=== PATIENT | female | born 1985 | race Caucasian/White ===

== ENCOUNTER 2016-10-22 07:16 | Inpatient (IN) | payer OTHER ==
[2016-10-22] MEDS ORDERED: Sodium Chloride 0.9% 1,000 ML IV ONE (07:44)
--- NOTE | 2016-10-22 08:16 | C.PDOC ---
History Of Present Illness 31-year-old female, presents to the emergency department with complaints of one- day duration of periumbilical abdominal pain, which is associated with nausea and several episodes of non-bloody/non-bilious vomiting. Patients LMP was 7/2. No other complaints at this time. Time Seen by Provider: 10/22/16 07:21 Chief Complaint (Nursing): Abdominal Pain History Per: Patient History/Exam Limitations: no limitations Onset/Duration Of Symptoms: Days Current Symptoms Are (Timing): Still Present Severity: Moderate Past Medical History Reviewed: Historical Data, Nursing Documentation, Vital Signs Vital Signs: Last Vital Signs Temp 98.9 F 10/22/16 07:26 Pulse 68 10/22/16 07:26 Resp 16 10/22/16 07:26 BP 126/70 10/22/16 07:26 Pulse Ox 97 10/22/16 07:26 Family History: States: No Known Family Hx - Social History Hx Tobacco Use: No Hx Alcohol Use: Yes Hx Substance Use: No Review Of Systems Except As Marked, All Systems Reviewed And Found Negative. Constitutional: Negative for: Fever Cardiovascular: Negative for: Chest Pain Respiratory: Negative for: Shortness of Breath Gastrointestinal: Positive for: Nausea, Vomiting, Abdominal Pain Genitourinary: Negative for: Vaginal Discharge, Vaginal Bleeding Physical Exam - Physical Exam Appears: Non-toxic, No Acute Distress Skin: Warm, Dry, No Rash Eye(s): bilateral: Normal Inspection Neck: Normal ROM Cardiovascular: Rhythm Regular, No Murmur Respiratory: Normal Breath Sounds, No Accessory Muscle Use Gastrointestinal/Abdominal: Soft, Tenderness (periumbilical) Extremity: Normal ROM Neurological/Psych: Oriented x3 ED Course And Treatment O2 Sat by Pulse Oximetry: 97 - Scribe Statement The provider has reviewed the documentation as recorded by the Scribe (Kaley Toussaint) All medical record entries made by the Scribe were at my direction and personally dictated by me. I have reviewed the chart and agree that the record accurately reflects my personal performance of the history, physical exam, medical decision making, and the department course for this patient. I have also personally directed, reviewed, and agree with the discharge instructions and disposition.
[2016-10-22] MEDS ORDERED: Sodium Chloride 0.9% 1,000 ML ONE (08:18)
--- NOTE | 2016-10-22 08:19 | C.PDOC ---
History Of Present Illness 31-year-old female, presents to the emergency department with complaints of one- day duration of periumbilical abdominal pain, which is associated with nausea and several episodes of non-bloody/non-bilious vomiting. Patients LMP was 7/2. No other complaints at this time. Time Seen by Provider: 10/22/16 07:21 Chief Complaint (Nursing): Abdominal Pain History Per: Patient History/Exam Limitations: no limitations Onset/Duration Of Symptoms: Days Current Symptoms Are (Timing): Still Present Severity: Moderate Location Of Pain/Discomfort: Periumbilical Past Medical History Reviewed: Historical Data, Nursing Documentation, Vital Signs Vital Signs: Last Vital Signs Temp 99.4 F 10/22/16 13:32 Pulse 79 10/22/16 16:00 Resp 21 10/22/16 16:00 BP 104/55 L 10/22/16 16:00 Pulse Ox 97 10/22/16 18:10 Family History: States: No Known Family Hx - Social History Hx Tobacco Use: No Hx Alcohol Use: Yes Hx Substance Use: No Review Of Systems Except As Marked, All Systems Reviewed And Found Negative. Constitutional: Negative for: Fever Cardiovascular: Negative for: Chest Pain, Palpitations Respiratory: Negative for: Shortness of Breath Gastrointestinal: Positive for: Nausea, Vomiting, Abdominal Pain. Negative for : Diarrhea Physical Exam - Physical Exam Appears: Non-toxic, No Acute Distress Skin: Warm, Dry, No Rash Eye(s): bilateral: Normal Inspection Nose: Normal Neck: Normal ROM Cardiovascular: Rhythm Regular, No Murmur Respiratory: Normal Breath Sounds, No Accessory Muscle Use Gastrointestinal/Abdominal: Soft, Tenderness (periumbilical) Extremity: Normal ROM Neurological/Psych: Oriented x3, Normal Speech ED Course And Treatment - Laboratory Results Result Diagrams: 10/22/16 08:28 10/22/16 08:28 Lab Interpretation: Abnormal Urine POC: Negative O2 Sat by Pulse Oximetry: 97 - CT Scan/US No standard instances Other Rad Studies (CT/US): Read By Radiologist, Radiology Report Reviewed CT/US Interpretation: FINDINGS: LOWER THORAX: Limited bilateral basilar dependent atelectasis identified. LIVER: Unremarkable. No gross lesion or ductal dilatation. GALLBLADDER AND BILE DUCTS: Unremarkable. PANCREAS: Unremarkable. No gross lesion or ductal dilatation. SPLEEN: Unremarkable. ADRENALS: Unremarkable. No mass. KIDNEYS AND URETERS: Unremarkable. No hydronephrosis. No solid mass. VASCULATURE: Unremarkable. No aortic aneurysm. BOWEL: A thickened tubular structure appears to originate from the base of the cecum medially may extend more medially into the mid peritoneal space of the lower abdomen and upper pelvis/right lower quadrant. Moderate local reactive changes appreciated the finding is suspicious for appendicitis. The lack of oral and intravenous contrast agents diminishes the did not diagnostic power of this examination. No bowel obstruction or free intrarenal gas is encountered. APPENDIX: As per above in bowel section. PERITONEUM: Likely periappendiceal reaction. LYMPH NODES: Unremarkable. No enlarged lymph nodes. BLADDER: Unremarkable. REPRODUCTIVE: Unremarkable. BONES: No acute fracture. OTHER FINDINGS: None. IMPRESSION: Examination is suspicious for appendicitis. No free air or ascites. Consider surgical consultation. Sign The lack of contrast agents limits interpretation. Consider repeat CT of the abdomen pelvis following oral and intravenous contrast administration. Progress Note: treated with IVF NSS, toradol and zosyn IV. Case discussed and patient evaluated by surgical nurse practitioner who request admission fot OR Reassessment Condition: Improved - Physician Consult Information Physician Contacted: Deshaun Malloy Outcome Of Conversation: admit Disposition Discussed With Dr.: Deshaun Malloy Doctor Will See Patient In The: Hospital - Disposition Disposition: HOSPITALIZED Disposition Time: 13:00 Condition: STABLE - POA Present On Arrival: None - Clinical Impression Clinical Impression: Acute appendicitis - Scribe Statement The provider has reviewed the documentation as recorded by the Scribe (Kaley Toussaint) All medical record entries made by the Scribe were at my direction and personally dictated by me. I have reviewed the chart and agree that the record accurately reflects my personal performance of the history, physical exam, medical decision making, and the department course for this patient. I have also personally directed, reviewed, and agree with the discharge instructions and disposition. Decision To Admit - Pt Status Changed To: Hospital Disposition Of: Inpatient - Admit Certification Admit to Inpatient:: After my assessment, the patient will require hospitalization for at least two midnights. This is because of the severity of symptoms shown, intensity of services needed, and/or the medical risk in this patient being treated as an outpatient. - InPatient: Physician Admission Certification:: Acute Appendicitis - . Bed Request Type: Regular Admitting Physician: Deshaun Malloy Patient Diagnosis: Acute appendicitis
[2016-10-22 08:36] LABS: BASO # 0.2 K/uL (0.0-0.2); BASO % 0.9 % (0.0-2.0); HEMOGLOBIN 12.3 g/dL (11.0-16.0); LYMPH # 1.2 K/uL (1.0-4.3); LYMPH % 5.7 % (20.0-40.0); MEAN CELL VOLUME 87.8 fL (81.0-99.0); MEAN PLATELET VOLUME 8.2 fL (7.2-11.7); MONO # 0.8 K/uL (0.0-0.8); MONO % 3.6 % (0.0-10.0); NEUT # 19.5 K/uL (1.8-7.0); NEUT % 89.8 % (50.0-75.0); NRBC % 0.1 % (0.0-2.0); PLATELET COUNT 304 K/uL (130-400); RBC 4.22 Mil/uL (3.80-5.20); RED CELL DISTRIBUTION WIDTH 12.6 % (11.5-14.5); WHITE BLOOD COUNT 21.8 K/uL (4.8-10.8)
[2016-10-22 08:43] LABS: HCG,QUALITATIVE URINE NEGATIVE (NEGATIVE)
[2016-10-22 08:44] LABS: ALBUMIN 4.2 g/dL (3.5-5.0)
[2016-10-22 08:47] LABS: ALB/GLOB RATIO 1.2 (1.0-2.1); ALT/SGPT 36 U/L (9-52); AST/SGOT 19 U/L (14-36); BLOOD UREA NITROGEN 12 mg/dL (7-17); GFR AFRICAN-AMERICAN > 60; GFR NON-AFRICAN AMERICAN > 60
[2016-10-22 08:48] LABS: CALCIUM 8.7 mg/dl (8.6-10.4); LIPASE 42 U/L (23-300)
[2016-10-22 08:56] LABS: SQUAMOUS EPITHIAL 10 /hpf (0-5); URINE BILIRUBIN NEGATIVE (NEGATIVE); URINE BLOOD NEGATIVE (NEGATIVE); URINE CLARITY Hazy (Clear); URINE COLOR Yellow (YELLOW); URINE GLUCOSE (UA) NORMAL (Normal); URINE LEUKOCYTE ESTERASE NEG Leu/uL (Negative); URINE NITRATE NEGATIVE (NEGATIVE); URINE PROTEIN NEGATIVE (NEGATIVE); URINE UROBILINOGEN NORMAL mg/dL (0.2-1.0)
[2016-10-22 09:13] LABS: LYMPHOCYTE 4 % (20-40); MONOCYTE 4 % (0-10); NEUTROPHIL 92 % (50-75); PLATELET ESTIMATE NORMAL (NORMAL); TOTAL CELLS COUNTED 100
--- NOTE | 2016-10-22 09:45 | CT ---
PROCEDURE: CT Abdomen and Pelvis without intravenous contrast HISTORY: Pain COMPARISON: None. TECHNIQUE: A helical CT of the abdomen pelvis was performed without oral or intravenous contrast. Imaging was performed from the domes of the diaphragm to the symphysis pubis. Contrast Dose: Omnipaque 350-100 cc Radiation dose: Total exam DLP = 314 mGy-cm. This CT exam was performed using one or more of the following dose reduction techniques: Automated exposure control, adjustment of the mA and/or kV according to patient size, and/or use of iterative reconstruction technique. FINDINGS: LOWER THORAX: Limited bilateral basilar dependent atelectasis identified. LIVER: Unremarkable. No gross lesion or ductal dilatation. GALLBLADDER AND BILE DUCTS: Unremarkable. PANCREAS: Unremarkable. No gross lesion or ductal dilatation. SPLEEN: Unremarkable. ADRENALS: Unremarkable. No mass. KIDNEYS AND URETERS: Unremarkable. No hydronephrosis. No solid mass. VASCULATURE: Unremarkable. No aortic aneurysm. BOWEL: A thickened tubular structure appears to originate from the base of the cecum medially may extend more medially into the mid peritoneal space of the lower abdomen and upper pelvis/right lower quadrant. Moderate local reactive changes appreciated the finding is suspicious for appendicitis. The lack of oral and intravenous contrast agents diminishes the did not diagnostic power of this examination. No bowel obstruction or free intrarenal gas is encountered. APPENDIX: As per above in bowel section PERITONEUM: Likely periappendiceal reaction. LYMPH NODES: Unremarkable. No enlarged lymph nodes. BLADDER: Unremarkable. REPRODUCTIVE: Unremarkable. BONES: No acute fracture. OTHER FINDINGS: None. IMPRESSION: Examination is suspicious for appendicitis. No free air or ascites. Consider surgical consultation. Sign The lack of contrast agents limits interpretation. Consider repeat CT of the abdomen pelvis following oral and intravenous contrast administration.
[2016-10-22] MEDS ORDERED: Morphine 4 MG/ML VIAL IVP PRN ×2 (10:49→13:34)
[2016-10-22] MEDS ORDERED: Piperacillin/Tazobact 3.375 gm 100 ML IV STA (10:50)
--- NOTE | 2016-10-22 11:05 | CP.PCM.HP ---
History of Present Illness - History of Present Illness History of Present Illness: H&P for Dr. Malloy Patient is a 31F with PMH of gestational diabetes and no PSH who presented to the ED today with history of periumbilical pain radiating to the RLQ, nausea, and nb/nb emesis since this AM. Patient took alkaseltzer this AM but it did not alleviate her symptoms. Patient reports feeling warm but did not measure her temperatur. Patient denies any chest pain, SOB, headaches, numbness, tingling, diarrhea, constipation, hematochezia, melena, dysuria, hematuria, or any other symptoms. Patient has never had a previous incident Afebrile, VSS WBC: 21.8 CT: dilated, inflamed tubular appendix with surrounding fat stranding PMH: Gestational Diabetes PSH: none ALL: vaginal anti-fungal cream--reaction: hives Social: denies tobacco, occasional ETOH, denies illicit drugs Present on Admission - Present on Admission Any Indicators Present on Admission: No Review of Systems - Review of Systems All systems: reviewed and no additional remarkable complaints except (as per HPI ) - Constitutional Constitutional: Fever. absent: Headache, Lethargy, Weakness - Cardiovascular Cardiovascular: absent: Chest Pain, Dyspnea, Dyspnea on Exertion - Respiratory Respiratory: absent: Cough, Dyspnea, Dyspnea on Exertion - Gastrointestinal Gastrointestinal: Abdominal Pain, Nausea, Vomiting. absent: Constipation, Diarrhea, Hematemesis, Hematochezia, Loose Stools - Genitourinary Genitourinary: absent: Difficulty Urinating, Dysuria, Hematuria - Reproductive: Female Additional comments: LMP: 10/05 - Menstruation Additional comments: LMP: 10/05 - Musculoskeletal Musculoskeletal: absent: Back Pain, Numbness, Tingling - Neurological Neurological: absent: Numbness, Tingling, Weakness Past Patient History - Past Social History Smoking Status: Never Smoked Alcohol: Occasional Drugs: Denies - ENDOCRINE/METABOLIC Other/Comment: Gestational diabetes - PSYCHIATRIC Hx Substance Use: No - SURGICAL HISTORY Hx Surgeries: No - ANESTHESIA Hx Anesthesia: No Meds Allergies/Adverse Reactions: Allergies Allergy/AdvReac Type Severity Reaction Status Date / Time No Known Allergies Allergy Verified 10/22/16 07:28 Physical Exam - Constitutional Appears: Well, Non-toxic, No Acute Distress - Head Exam Head Exam: ATRAUMATIC, NORMOCEPHALIC - Eye Exam Eye Exam: Normal appearance. absent: Conjunctival injection, Scleral icterus - ENT Exam ENT Exam: Mucous Membranes Moist, Normal Oropharynx - Neck Exam Neck exam: Positive for: Normal Inspection - Respiratory Exam Respiratory Exam: NORMAL BREATHING PATTERN. absent: Accessory Muscle Use, Respiratory Distress - Cardiovascular Exam Cardiovascular Exam: RRR - GI/Abdominal Exam GI & Abdominal Exam: Soft, Tenderness (periumbilical and RLQ and LLQ pain). absent: Distended, Guarding, Rebound - Extremities Exam Extremities exam: Positive for: pedal pulses present. Negative for: calf tenderness, pedal edema - Back Exam Back exam: NORMAL INSPECTION. absent: CVA tenderness (L), CVA tenderness (R) - Neurological Exam Neurological exam: Alert, Normal Gait, Oriented x3 - Psychiatric Exam Psychiatric exam: Normal Affect, Normal Mood - Skin Skin Exam: Dry, Intact, Normal Color, Warm Results - Vital Signs Recent Vital Signs: Last Vital Signs Temp 98.7 F 10/22/16 10:37 Pulse 71 10/22/16 10:37 Resp 15 10/22/16 10:37 BP 113/72 10/22/16 10:37 Pulse Ox 98 10/22/16 10:37 - Labs Result Diagrams: 10/22/16 08:28 10/22/16 08:28 Labs: Laboratory Results - last 24 hr 10/22/16 10/22/16 10/22/16 08:28 08:28 08:29 WBC 21.8 H RBC 4.22 Hgb 12.3 Hct 37.1 MCV 87.8 MCH 29.0 MCHC 33.0 RDW 12.6 Plt Count 304 MPV 8.2 Neut % (Auto) 89.8 H Lymph % (Auto) 5.7 L [place] % (Auto) 3.6 Eos % (Auto) 0.0 Baso % (Auto) 0.9 Neut # 19.5 H Lymph # 1.2 [place] # 0.8 Eos # 0.0 Baso # 0.2 Neutrophils % (Manual) 92 H Lymphocytes % (Manual) 4 L Monocytes % (Manual) 4 Platelet Estimate Normal RBC Morphology Normal Sodium 136 Potassium 3.7 Chloride 99 Carbon Dioxide 24 Anion Gap 17 BUN 12 Creatinine 0.4 L Est GFR ( Amer) > 60 Est GFR (Non-Af Amer) > 60 Random Glucose 140 H Calcium 8.7 Total Bilirubin 1.3 AST 19 ALT 36 Alkaline Phosphatase 83 Total Protein 7.5 Albumin 4.2 Globulin 3.4 Albumin/Globulin Ratio 1.2 Lipase 42 Urine Color Yellow Urine Clarity Hazy Urine pH 5.0 Ur Specific [place] 1.027 Urine Protein Negative Urine Glucose (UA) Normal Urine Ketones Negative Urine Blood Negative Urine Nitrate Negative Urine Bilirubin Negative Urine Urobilinogen Normal Ur Leukocyte Esterase Neg Urine WBC (Auto) 1 Urine RBC (Auto) 2 Ur Squamous Epith Cells 10 H Urine HCG, Qual Negative - Imaging and Cardiology CT scan - abdomen Status: Image reviewed by me, Report reviewed by me CT scan - pelvis Status: Image reviewed by me, Report reviewed by me Assessment & Plan - Assessment and Plan (Free Text) Assessment: 31F with Appendicitis and leukocytosis Afebrile, VSS Wbc: 21.8 CT: dilated, inflamed appendix Plan: OR today for laparoscopic appendectomy, possible open NPO IV Zosyn analgesia, anti-emetics, SCD's and pepcid Discussed with Dr. Gama Harris, PGY2
[2016-10-22] MEDS ORDERED: Piperacillin/Tazobact 3.375 gm 100 ML IVPB ONE (11:07)
[2016-10-22 11:14] LABS: PROTHROMBIN TIME 11.2 SECONDS (9.7-12.2)
[2016-10-22] MEDS: Sodium Chloride 0.9% 1,000 ML IV SCH ×2 (11:18→18:53)
[2016-10-22] MEDS: Piperacillin/Tazobact 3.375 GM in Sodium Chloride 100 ML IVPB SCH ×3 (11:18→22:17)
[2016-10-22] MEDS ORDERED: Bupivacaine-Epi 0.5%-1:200,000 PF Inj ONE (11:21)
[2016-10-22] MEDS ORDERED: Propofol 10 mg/ml Inj (20 ML) ONE (11:26)
[2016-10-22] MEDS ORDERED: Midazolam 2 MG/2 ML VIAL ONE (11:26)
[2016-10-22] MEDS ORDERED: Morphine 4 MG/ML VIAL ONE (11:27)
[2016-10-22] MEDS ORDERED: Lactated Ringer's 1,000 ML IV ONE ×3 (12:07→15:30)
[2016-10-22] MEDS ORDERED: Neostigmine Methylsulfate 3mg/3ml Syringe IV ONE (13:14)
[2016-10-22] MEDS ORDERED: HYDROmorphone 0.5 mg/0.5 ml ISec IVP PRN (13:33)
--- NOTE | 2016-10-22 13:36 | PCM.SURG1 ---
Surgeon's Initial Post Op Note - Surgeon's Notes Surgeon: Deshaun Malloy MD Ticket Sorter: Claritza Harris PGY-2; Brianna Alatorre PGY-1; Yani Price OMS-III Type of Anesthesia: General Endo Pre-Operative Diagnosis: Acute appendicitis Operative Findings: See op report Post-Operative Diagnosis: Acute appendicitis Operation Performed: Laparoscopic appendectomy Specimen/Specimens Removed: Appendix and appendix base Estimated Blood Loss: EBL {In ML}: 30 Blood Products Given: N/A Drains Used: No Drains Post-Op Condition: Good Date of Surgery/Procedure: 10/22/16 Time of Surgery/Procedure: 13:35
[2016-10-22 19:45] VITALS: RESP 20
[2016-10-22] MEDS: Oxycodone/Acetaminophen 5/325 mg Tab PO PRN (19:56)
[2016-10-23] MEDS: Oxycodone/Acetaminophen 5/325 mg Tab PO PRN (01:46)
--- NOTE | 2016-10-23 02:03 | OP ---
DATE: 10/22/2016 PREOPERATIVE DIAGNOSIS: Acute appendicitis. POSTOPERATIVE DIAGNOSIS: Acute gangrenous appendicitis. PROCEDURE PERFORMED: Laparoscopic appendectomy. SURGEON: Deshaun Malloy MD DISPATCHER SERVICE OR WORK: . FINDINGS: Appendix was markedly inflamed. It was gangrenous, down to about 1 cm of the base. Mesentery was very edematous and containing some fibrinous exudate. No gross perforation was noted. DESCRIPTION OF PROCEDURE: The patient was prepared and draped in sterile fashion. CO2 was insufflated through a Veress needle and inserted in the umbilical area. A 12-mm trocar was inserted and then through that, a laparoscope was inserted under direct vision, 5 mm suprapubic port and a 5 mm left lower quadrant ports were inserted. The patient was placed in a Trendelenburg position, turned slightly towards the left side. The appendix was identified. The base of the appendix was also identified. A window was created at the base of the appendix. It was transected with the aid of the and OLGA with loose anel. The mesentery was treated with the wide anel and the remaining unstapled was left and cut. The appendix was placed and an EndoCatch was extracted through the umbilical port. The area was irrigated with saline solution and irrigated through suction. No bleeding was noted. CO2 allowed to escape from the peritoneal cavity. Trocar was removed. The wound was closed in a routine fashion. Estimated blood loss was about 10 mL. No complications. Deshaun Malloy MD
[2016-10-23] MEDS: Sodium Chloride 0.9% 1,000 ML IV SCH ×2 (05:33→06:16)
[2016-10-23] MEDS: Piperacillin/Tazobact 3.375 GM in Sodium Chloride 100 ML IVPB SCH ×2 (05:34→12:59)
[2016-10-23 07:25] LABS: BASO % 0.1 % (0.0-2.0); LYMPH # 0.7 K/uL (1.0-4.3); LYMPH % 4.1 % (20.0-40.0); MEAN CELL VOLUME 87.7 fL (81.0-99.0); MEAN CORPUSCULAR HEMOGLOBIN 30.3 pg (27.0-31.0); MEAN CORPUSCULAR HGB CONC 34.6 g/dL (33.0-37.0); MEAN PLATELET VOLUME 7.9 fL (7.2-11.7); MONO # 0.6 K/uL (0.0-0.8); MONO % 3.7 % (0.0-10.0); NEUT # 15.9 K/uL (1.8-7.0); NEUT % 92.1 % (50.0-75.0); PLATELET COUNT 242 K/uL (130-400); RBC 3.33 Mil/uL (3.80-5.20); RED CELL DISTRIBUTION WIDTH 12.9 % (11.5-14.5); WHITE BLOOD COUNT 17.3 K/uL (4.8-10.8)
[2016-10-23 07:38] LABS: GFR AFRICAN-AMERICAN > 60; GFR NON-AFRICAN AMERICAN > 60
[2016-10-23 07:39] LABS: BLOOD UREA NITROGEN 5 mg/dL (7-17); CALCIUM 7.7 mg/dl (8.6-10.4)
[2016-10-23 07:42] LABS: HEMOGLOBIN 10.1 g/dL (11.0-16.0)
[2016-10-23] MEDS ORDERED: Oxycodone/Acetaminophen 5/325 mg Tab PO PRN (07:52)
--- NOTE | 2016-10-23 09:13 | CP.PCM.PN ---
Subjective - Date & Time of Evaluation Date of Evaluation: 10/23/16 Time of Evaluation: 08:00 - Subjective Subjective: Patient seen and examined this morning. Complained of mild abdominal pain along surgical incision sites. Tolerating PO diet. States she feels much better compared to yesterday. Reports passing flatus. Denies headache/dizziness, chest pain/SOB, dysuria. Objective - Vital Signs/Intake and Output Vital Signs (last 24 hours): Temp Pulse Resp BP Pulse Ox 99.1 F 93 H 20 97/59 L 94 L 10/23/16 08:16 10/23/16 08:16 10/23/16 08:16 10/23/16 08:16 10/23/16 08:16 Intake and Output: 10/23/16 10/23/16 06:59 18:59 Intake Total 1440 Balance 1440 - Medications Medications: Current Medications Enoxaparin Sodium (Lovenox) 40 mg SC DAILY [facility] Famotidine (Pepcid) 20 mg IVP Q12 [facility] Last Admin: 10/22/16 22:23 Dose: 20 mg Piperacillin Sod/Tazobactam (Sod 3.375 gm/ Sodium Chloride) 100 mls @ 200 mls/ hr IVPB Q6H MANUEL Last Admin: 10/23/16 05:34 Dose: 200 mls/hr Ondansetron HCl (Zofran Inj) 4 mg IVP Q6 PRN PRN Reason: Nausea/Vomiting Oxycodone/Acetaminophen (Percocet 5/325 Mg Tab) 1 tab PO Q4H PRN PRN Reason: Pain, moderate (4-7) Stop: 10/25/16 07:53 Last Admin: 10/23/16 08:29 Dose: 1 tab Pneumococcal Polyvalent Vaccine (Pneumovax 23 Vaccine) 0.5 ml IM .ONCE ONE Stop: 10/23/16 10:01 - Labs Labs: 10/23/16 07:03 10/23/16 07:03 PT 11.2 SECONDS (9.7-12.2) 10/22/16 11:02 INR 1.0 10/22/16 11:02 APTT 29 SECONDS (21-34) 10/22/16 11:02 - Constitutional Appears: No Acute Distress - Head Exam Head Exam: NORMOCEPHALIC - Eye Exam Eye Exam: Normal appearance - ENT Exam ENT Exam: Mucous Membranes Moist - Respiratory Exam Respiratory Exam: NORMAL BREATHING PATTERN - Cardiovascular Exam Cardiovascular Exam: +S1, +S2 - GI/Abdominal Exam GI & Abdominal Exam: Soft, Tenderness - Neurological Exam Neurological Exam: Alert, Awake, Oriented x3 - Psychiatric Exam Psychiatric exam: Normal Mood - Skin Skin Exam: Dry, Intact, Warm Assessment and Plan - Assessment and Plan (Free Text) Assessment: 31F w/ acute appaendicitis s/p laparoscopic appendectomy POD #1 -Patient clear for discharge from surgical standpoint -Replete potassium -PO Abx upon discharge -Follow up with Dr. Malloy in 7-10 days -further recs per Dr. Gama Benitez PGY-2
[2016-10-23 09:18] LABS: ANISOCYTOSIS SLIGHT; BANDS 10 % (0-2); HYPOCHROMIC SLIGHT; LYMPHOCYTE 2 % (20-40); MONOCYTE 4 % (0-10); NEUTROPHIL 84 % (50-75); PLATELET ESTIMATE NORMAL (NORMAL); POIKILOCYTOSIS SLIGHT; TOTAL CELLS COUNTED 100
[2016-10-23] MEDS ORDERED: Potassium Chloride 20 mEq ER Tab PO SCH (10:00)
[2016-10-23] MEDS ORDERED: Enoxaparin 40 mg Syringe SC SCH (10:00)
[2016-10-23] MEDS ORDERED: Pneumococcal 23-Valent Vaccine IM ONE (10:00)
--- NOTE | 2016-10-23 10:06 | CP.PCM.DIS ---
Provider - Provider Date of Admission: 10/22/16 11:10 Attending physician: Deshaun Malloy MD Time Spent in preparation of Discharge (in minutes): 35 Hospital Course - Lab Results Lab Results: Most Recent Lab Values WBC 17.3 K/uL (4.8-10.8) H 10/23/16 07:03 RBC 3.33 Mil/uL (3.80-5.20) L 10/23/16 07:03 Hgb 10.1 g/dL (11.0-16.0) L D 10/23/16 07:03 Hct 29.2 % (34.0-47.0) L 10/23/16 07:03 MCV 87.7 fL (81.0-99.0) 10/23/16 07:03 MCH 30.3 pg (27.0-31.0) 10/23/16 07:03 MCHC 34.6 g/dL (33.0-37.0) 10/23/16 07:03 RDW 12.9 % (11.5-14.5) 10/23/16 07:03 Plt Count 242 K/uL (130-400) 10/23/16 07:03 MPV 7.9 fL (7.2-11.7) 10/23/16 07:03 Neut % (Auto) 92.1 % (50.0-75.0) H 10/23/16 07:03 Lymph % (Auto) 4.1 % (20.0-40.0) L 10/23/16 07:03 [place] % (Auto) 3.7 % (0.0-10.0) 10/23/16 07:03 Eos % (Auto) 0.0 % (0.0-4.0) 10/23/16 07:03 Baso % (Auto) 0.1 % (0.0-2.0) 10/23/16 07:03 Neut # 15.9 K/uL (1.8-7.0) H 10/23/16 07:03 Lymph # 0.7 K/uL (1.0-4.3) L 10/23/16 07:03 [place] # 0.6 K/uL (0.0-0.8) 10/23/16 07:03 Eos # 0.0 K/uL (0.0-0.7) 10/23/16 07:03 Baso # 0.0 K/uL (0.0-0.2) 10/23/16 07:03 Neutrophils % (Manual) 84 % (50-75) H 10/23/16 07:03 Band Neutrophils % 10 % (0-2) H 10/23/16 07:03 Lymphocytes % (Manual) 2 % (20-40) L 10/23/16 07:03 Monocytes % (Manual) 4 % (0-10) 10/23/16 07:03 Platelet Estimate Normal (NORMAL) 10/23/16 07:03 RBC Morphology Normal 10/22/16 08:28 Hypochromasia (manual) Slight 10/23/16 07:03 Poikilocytosis (manual Slight 10/23/16 07:03 Anisocytosis (manual) Slight 10/23/16 07:03 PT 11.2 SECONDS (9.7-12.2) 10/22/16 11:02 INR 1.0 10/22/16 11:02 APTT 29 SECONDS (21-34) 10/22/16 11:02 Sodium 139 mmol/L (132-148) 10/23/16 07:03 Potassium 3.0 mmol/L (3.6-5.2) L 10/23/16 07:03 Chloride 103 mmol/L (98-107) 10/23/16 07:03 Carbon Dioxide 24 mmol/L (22-30) 10/23/16 07:03 Anion Gap 15 (10-20) 10/23/16 07:03 BUN 5 mg/dL (7-17) L 10/23/16 07:03 Creatinine 0.5 MG/DL (0.7-1.2) L 10/23/16 07:03 Est GFR ( Amer) > 60 10/23/16 07:03 Est GFR (Non-Af Amer) > 60 10/23/16 07:03 Random Glucose 150 mg/dL (65-105) H 10/23/16 07:03 Calcium 7.7 mg/dl (8.6-10.4) L 10/23/16 07:03 Total Bilirubin 1.3 mg/dL (0.2-1.3) 10/22/16 08:28 AST 19 U/L (14-36) 10/22/16 08:28 ALT 36 U/L (9-52) 10/22/16 08:28 Alkaline Phosphatase 83 U/L (38-126) 10/22/16 08:28 Total Protein 7.5 g/dL (6.3-8.3) 10/22/16 08:28 Albumin 4.2 g/dL (3.5-5.0) 10/22/16 08:28 Globulin 3.4 gm/dL (2.2-3.9) 10/22/16 08:28 Albumin/Globulin Ratio 1.2 (1.0-2.1) 10/22/16 08:28 Lipase 42 U/L (23-300) 10/22/16 08:28 Urine Color Yellow (YELLOW) 10/22/16 08:29 Urine Clarity Hazy (Clear) 10/22/16 08:29 Urine pH 5.0 (5.0-8.0) 10/22/16 08:29 Ur Specific [place] 1.027 (1.003-1.030) 10/22/16 08:29 Urine Protein Negative mg/dL (NEGATIVE) 10/22/16 08:29 Urine Glucose (UA) Normal mg/dL (Normal) 10/22/16 08:29 Urine Ketones Negative mg/dL (NEGATIVE) 10/22/16 08:29 Urine Blood Negative (NEGATIVE) 10/22/16 08:29 Urine Nitrate Negative (NEGATIVE) 10/22/16 08:29 Urine Bilirubin Negative (NEGATIVE) 10/22/16 08:29 Urine Urobilinogen Normal mg/dL (0.2-1.0) 10/22/16 08:29 Ur Leukocyte Esterase Neg Bin/uL (Negative) 10/22/16 08:29 Urine WBC (Auto) 1 /hpf (0-5) 10/22/16 08:29 Urine RBC (Auto) 2 /hpf (0-3) 10/22/16 08:29 Ur Squamous Epith Cells 10 /hpf (0-5) H 10/22/16 08:29 Urine HCG, Qual Negative (NEGATIVE) 10/22/16 08:29 Blood Type O POSITIVE 10/22/16 11:02 Antibody Screen Negative 10/22/16 11:02 Discharge Exam - Head Exam Head Exam: NORMOCEPHALIC Discharge Plan - Discharge Medications Prescriptions: Amoxicillin/Clavulanate [Augmentin 875 MG-125 MG] 1 tab PO BID #20 tab - Follow Up Plan Condition: STABLE Disposition: HOME/ ROUTINE
[2016-10-23 16:16] VITALS: BP 91/63; PULSE 63; TEMP 100.7; O2SAT 97
== END 2016-10-23 16:25 | disposition home or self-care (01) | DRG 883 ==
LOC: C.ER 07:16 → C.9E 10:49 → OBSVTOIN 11:10 → C.6T 11:35 → C.9S 14:04 → C.6T 18:24
PROVIDERS: ADMIT Surgery; ATTEND Surgery
PROC: 0DTJ4ZZ Resection of Appendix, Percutaneous Endoscopic Approach (ICD-10-PCS; principal; 2016-10-22 10:30)
DX: K35.80 Unspecified acute appendicitis (principal); D72.829 Elevated white blood cell count, unspecified; Z86.32 Personal history of gestational diabetes

== ENCOUNTER 2016-10-24 04:22 | Inpatient (IN) | payer OTHER ==
--- NOTE | 2016-10-24 04:32 | C.PDOC ---
History Of Present Illness Pt is 2 days post lap appendectomy., Pt complaining of cough and some hemoptysis - small amount of blood streaked on some sputum. Tolerating po. No bm as of yet. Speaking in complete sentences Time Seen by Provider: 10/24/16 04:31 History Per: Patient History/Exam Limitations: no limitations Onset/Duration Of Symptoms: Hrs Current Symptoms Are (Timing): Worse Initiating Event: Other (cough) Quality: Dull, Aching Exacerbating Factor(s): Coughing Current Respiratory Medications: See Home Med List Pain Scale Rating Of: 6 Associated Symptoms: denies: Fever, Chills, Heart Racing, Anxiety Reports Recently: Seen In ED, Treated By A Physician, Hospitalized Recent travel outside of the [place]: No Additional History Per: Patient, Family Past Medical History Reviewed: Historical Data, Nursing Documentation, Vital Signs Vital Signs: Last Vital Signs Temp 100.2 F H 10/24/16 06:13 Pulse 89 10/24/16 06:13 Resp 24 10/24/16 06:13 BP 116/69 10/24/16 06:13 Pulse Ox 96 10/24/16 06:55 - Medical History PMH: Denies: Chronic Kidney Disease Family History: States: No Known Family Hx - Social History Hx Tobacco Use: No Hx Alcohol Use: Yes (social) Hx Substance Use: No Review Of Systems Constitutional: Positive for: Fever, Malaise. Negative for: Chills Eyes: Negative for: Redness ENT: Negative for: Throat Pain Cardiovascular: Positive for: Orthopnea. Negative for: Chest Pain, Palpitations Respiratory: Positive for: Shortness of Breath, Hemoptysis (one small sputum with a blood streak), SOB with Excertion Gastrointestinal: Positive for: Abdominal Pain. Negative for: Nausea, Vomiting Genitourinary: Negative for: Dysuria Musculoskeletal: Negative for: Back Pain Skin: Negative for: Rash, Lesions, Jaundice Neurological: Negative for: Weakness Psych: Negative for: Anxiety Physical Exam - Physical Exam Appears: Non-toxic Skin: Warm, Dry Head: Normacephalic Eye(s): bilateral: Normal Inspection, PERRL, EOMI Oral Mucosa: Moist Throat: No Erythema Neck: Trachea Midline, Supple Chest: Symmetrical Cardiovascular: Rhythm Regular Respiratory: Accessory Muscle Use, No Rales, Rhonchi (r>l), No Wheezing Gastrointestinal/Abdominal: Bowel Sounds (tympanic to percussion), Soft, Tenderness (at incision sites, incissons clean and dry), Distention, No Rebound Back: No CVA Tenderness Extremity: Normal ROM, No Tenderness Extremity: Bilateral: Atraumatic, Normal Color And Temperature, Normal ROM Neurological/Psych: Oriented x3, Normal Speech, Normal Cognition Gait: Steady ED Course And Treatment - Laboratory Results Result Diagrams: 10/24/16 05:00 10/24/16 05:00 ECG: Interpreted By Me, Viewed By Me ECG Rhythm: Sinus Tachycardia (106), Nonspecific Changes O2 Sat by Pulse Oximetry: 96 Pulse Ox Interpretation: Normal - Radiology CXR: Interpreted by Me, Viewed By Me CXR Interpretation: Yes: Heart Size, Other (bl iinfiltraes l>r). No: Fracture, Cardiomegaly Progress Note: blood work, cultures, iv zosyn and vanco, abg, ct angio Critical Care Time - Critical Care Note Total Time (in mins): 30 Documented critical care: time excludes all time spent performing seperately billable procedures. Disposition Counseled Patient/Family Regarding: Studies Performed, Diagnosis - Disposition Disposition: HOSPITALIZED Disposition Time: 04:32 Condition: GUARDED - Clinical Impression Clinical Impression: NSTEMI (non-ST elevated myocardial infarction), Pneumonia Physician Patient Turnover Patient Signed Over To: Velia Lopez Handoff Comments: pending icu eval
[2016-10-24 04:34] VITALS: BMI 23.2
[2016-10-24] MEDS ORDERED: Piperacillin/Tazobact 3.375 gm 100 ML IVPB STA (04:50)
[2016-10-24] MEDS ORDERED: Vancomycin 1 GM 1 GM/250 ML BAG IVPB STA (05:00)
[2016-10-24 05:02] LABS: BASO # 0.1 K/uL (0.0-0.2); BASO % 0.5 % (0.0-2.0); EOS % 0.1 % (0.0-4.0); HEMOGLOBIN 10.7 g/dL (11.0-16.0); LYMPH # 1.2 K/uL (1.0-4.3); MEAN CELL VOLUME 88.2 fL (81.0-99.0); MEAN CORPUSCULAR HEMOGLOBIN 29.5 pg (27.0-31.0); MEAN CORPUSCULAR HGB CONC 33.5 g/dL (33.0-37.0); MEAN PLATELET VOLUME 8.1 fL (7.2-11.7); MONO # 0.5 K/uL (0.0-0.8); MONO % 3.6 % (0.0-10.0); NEUT # 13.2 K/uL (1.8-7.0); NEUT % 87.8 % (50.0-75.0); PLATELET COUNT 229 K/uL (130-400); RBC 3.64 Mil/uL (3.80-5.20); RED CELL DISTRIBUTION WIDTH 12.6 % (11.5-14.5)
[2016-10-24] MEDS ORDERED: Piperacillin/Tazobact 3.375 gm 100 ML IVPB ONE (05:05)
[2016-10-24] MEDS ORDERED: Vancomycin 1 GM 1 GM/250 ML BAG IVPB ONE (05:09)
[2016-10-24 05:10] LABS: INR 1.1; PROTHROMBIN TIME 12.2 SECONDS (9.7-12.2)
[2016-10-24 05:15] LABS: ALBUMIN 3.3 g/dL (3.5-5.0)
[2016-10-24 05:18] LABS: ALT/SGPT 31 U/L (9-52); AST/SGOT 30 U/L (14-36); BLOOD UREA NITROGEN 8 mg/dL (7-17); GFR AFRICAN-AMERICAN > 60; GFR NON-AFRICAN AMERICAN > 60
[2016-10-24 05:19] LABS: CALCIUM 7.9 mg/dl (8.6-10.4)
[2016-10-24] MEDS ORDERED: Sodium Chloride 0.9% 1,000 ML IV ONE (05:24)
[2016-10-24] MEDS ORDERED: Sodium Chloride 0.9% 1,000 ML ONE (05:34)
[2016-10-24 05:35] LABS: ABG ALLEN TEST POS; ARTERIAL BLOOD GAS HCO3 24.7 mmol/L (21-28); ARTERIAL BLOOD GAS PCO2 38 mm/Hg (35-45); ARTERIAL BLOOD GAS PH 7.41 (7.35-7.45); ARTERIAL BLOOD GAS PO2 102 mm/Hg (80-100); ARTERIAL BLOOD GAS TCO2 25.3 mmol/L (22-28)
[2016-10-24] MEDS ORDERED: Iodixanol 320 MG/ML 100 ML BOTTLE IV ONE (05:40)
[2016-10-24 06:54] LABS: BANDS 5 % (0-2); EOSINOPHIL 2 % (0-4); LYMPHOCYTE 14 % (20-40); MONOCYTE 2 % (0-10); NEUTROPHIL 77 % (50-75); PLATELET ESTIMATE NORMAL (NORMAL); TOTAL CELLS COUNTED 100
[2016-10-24] MEDS: Albuterol-Ipratrop 3 mg / 0.5 (3 ml) UD INH SCH ×4 (08:30→20:00)
--- NOTE | 2016-10-24 08:36 | CP.PCM.CON ---
History of Present Illness - History of Present Illness History of Present Illness: 31yo F. PMHx appendectomy 2 days ago. p/w new health care associated pneumonia , from splinting and poor respiratory effort. Review of Systems - Review of Systems All systems: reviewed and no additional remarkable complaints except - Respiratory Respiratory: Dyspnea, Chest Congestion Past Patient History - Past Medical History & Family History Past Medical History?: No - Past Social History Smoking Status: Never Smoked - CARDIAC Hx Cardiac Disorders: No - PULMONARY Hx Respiratory Disorders: No - NEUROLOGICAL Hx Neurological Disorder: No - HEENT Hx HEENT Problems: No - RENAL Hx Chronic Kidney Disease: No - ENDOCRINE/METABOLIC Hx Endocrine Disorders: No Other/Comment: Gestational diabetes - HEMATOLOGICAL/ONCOLOGICAL Hx Blood Disorders: No - INTEGUMENTARY Hx Dermatological Problems: No - MUSCULOSKELETAL/RHEUMATOLOGICAL Hx Musculoskeletal Disorders: No Hx Falls: No - GASTROINTESTINAL Hx Gastrointestinal Disorders: No - GENITOURINARY/GYNECOLOGICAL Hx Genitourinary Disorders: No - PSYCHIATRIC Hx Substance Use: No - SURGICAL HISTORY Hx Surgeries: No - ANESTHESIA Hx Anesthesia: No Meds Allergies/Adverse Reactions: Allergies Allergy/AdvReac Type Severity Reaction Status Date / Time No Known Allergies Allergy Verified 10/24/16 04:34 - Medications Medications: Current Medications Albuterol/Ipratropium (Duoneb 3 Mg/0.5 Mg (3 Ml) Ud) 3 ml INH Q4H MANUEL Guaifenesin (Mucinex La) 600 mg PO BID MANUEL Cefepime HCl 1 gm/ Sodium (Chloride) 50 mls @ 100 mls/hr IVPB DAILY MANUEL Physical Exam - Head Exam Head Exam: ATRAUMATIC, NORMAL INSPECTION, NORMOCEPHALIC - Eye Exam Eye Exam: EOMI, Normal appearance, PERRL - ENT Exam ENT Exam: Mucous Membranes Moist, Normal Exam - Respiratory Exam Respiratory Exam: Clear to Auscultation Bilateral. absent: NORMAL BREATHING PATTERN Additional comments: mildly tachypneic - Cardiovascular Exam Cardiovascular Exam: REGULAR RHYTHM - GI/Abdominal Exam GI & Abdominal Exam: Normal Bowel Sounds, Soft. absent: Tenderness - Neurological Exam Neurological exam: Alert, CN II-XII Intact, Oriented x3, Reflexes Normal - Psychiatric Exam Psychiatric exam: Normal Affect, Normal Mood Results - Vital Signs Recent Vital Signs: Last Vital Signs Temp 100.2 F H 10/24/16 06:13 Pulse 89 10/24/16 06:13 Resp 27 H 10/24/16 07:13 BP 116/69 10/24/16 06:13 Pulse Ox 96 10/24/16 07:19 - Labs Result Diagrams: 10/24/16 05:00 10/24/16 05:00 Labs: Laboratory Results - last 24 hr 10/24/16 10/24/16 10/24/16 05:00 05:00 05:00 WBC 15.0 H RBC 3.64 L Hgb 10.7 L Hct 32.1 L MCV 88.2 MCH 29.5 MCHC 33.5 RDW 12.6 Plt Count 229 MPV 8.1 Neut % (Auto) 87.8 H Lymph % (Auto) 8.0 L [place] % (Auto) 3.6 Eos % (Auto) 0.1 Baso % (Auto) 0.5 Neut # 13.2 H Lymph # 1.2 [place] # 0.5 Eos # 0.0 Baso # 0.1 Neutrophils % (Manual) 77 H Band Neutrophils % 5 H Lymphocytes % (Manual) 14 L Monocytes % (Manual) 2 Eosinophils % (Manual) 2 Platelet Estimate Normal PT 12.2 INR 1.1 APTT 19 L D Puncture Site pCO2 pO2 HCO3 ABG pH ABG Total CO2 ABG O2 Saturation ABG Base Excess Abiel Test ABG Potassium Glucose Lactate Liter Flow Crit Value Called To Crit Value Called By Crit Value Read Back Blood Gas Notified Time Sodium 136 Potassium 3.3 L Chloride 100 Carbon Dioxide 24 Anion Gap 15 BUN 8 Creatinine 0.5 L Est GFR ( Amer) > 60 Est GFR (Non-Af Amer) > 60 Random Glucose 112 H Calcium 7.9 L Total Bilirubin 1.3 AST 30 ALT 31 Alkaline Phosphatase 46 Troponin I 0.2620 H* Total Protein 6.6 Albumin 3.3 L D Globulin 3.3 Albumin/Globulin Ratio 1.0 Arterial Blood Potassium 10/24/16 05:26 WBC RBC Hgb Hct MCV MCH MCHC RDW Plt Count MPV Neut % (Auto) Lymph % (Auto) [place] % (Auto) Eos % (Auto) Baso % (Auto) Neut # Lymph # [place] # Eos # Baso # Neutrophils % (Manual) Band Neutrophils % Lymphocytes % (Manual) Monocytes % (Manual) Eosinophils % (Manual) Platelet Estimate PT INR APTT Puncture Site Rt brac pCO2 38 pO2 102 H HCO3 24.7 ABG pH 7.41 ABG Total CO2 25.3 ABG O2 Saturation 99.0 H ABG Base Excess -0.3 Abiel Test Pos ABG Potassium 2.8 L Glucose 110 H Lactate 0.7 Liter Flow 15.0 Crit Value Called To Md estevan hernandez Crit Value Called By R alert enrollment specialist Crit Value Read Back Y Blood Gas Notified Time 540 Sodium 137.0 Potassium Chloride 109.0 H Carbon Dioxide Anion Gap BUN Creatinine Est GFR ( Amer) Est GFR (Non-Af Amer) Random Glucose Calcium Total Bilirubin AST ALT Alkaline Phosphatase Troponin I Total Protein Albumin Globulin Albumin/Globulin Ratio Arterial Blood Potassium 2.8 L Assessment & Plan (1) Pneumonia Assessment and Plan: 31yo F. PMHx appendectomy 2 days ago. p/w new health care associated pneumonia. Neuro: alert and oriented x 3 Pulm: acute respiratory failure with hypoxia, requiring humidified oxygen VM 80% , titrate down to maintain O2S>92%. Health care associated pneumonia abx, duonebs, mucolytics, chest pt q4h, incentive spirometry q4h. CV: hemodynamically stable. Positive troponins most likely Type 2 strain, will check serial Troponins. Renal: will monitor urine output GI: regular diet ID: sepsis from HCAP, continue Cefepime. Patient got one dose of Vanco in ED, continue if MRSA positive screen or no improvement. DVT proph - lovenox GI proph - not currently indicated Full code Patient is clinically stable for continued management on Telemetry floors. If patient's condition changes please reconsult ICU. Critical Care Time 40 minutes. Status: Acute
--- NOTE | 2016-10-24 08:47 | CP.PCM.HP ---
<Vitaliy Gr - Last Filed: 10/24/16 18:23> History of Present Illness - History of Present Illness History of Present Illness: H&P for Dr. Nichole CC: "I've been having trouble breathing/coughing after my surgery" Patient is a 31F with PMHx of gestational diabetes and s/p appendectomy 2 days ago at [facility] who presents for SOB and cough. Pt reports she was discharged from the hospital on thursday of this week following appendectomy and was sent home with prescription for augmentin and roxicet. Pt has not been using incentive spirometer post-surgery because it was forgotten at the hospital. She also reports she has not getting up and walking around a lot since the surgery. Pt reports she began to develop cough yesterday evening that was productive, with initially yellow, then red-tinged pleghm. This was associated with subjective fever, chills, and when these did symptoms did not improved with motrin she decided to come to the hospital. She denies abdominal pain (except small amount of pain around surgical site), nausea, vomiting, or diarrhea. She rates the abdominal pain as 2/10 after taking the roxicet. She reports no BM since surgery though she admits passing flatus. She denies sick contacts, and denies travel. She futher denies chest pain, palpitations, diaphoresis, headache, or extremity swelling. PMH: Gestational Diabetes PSH: none ALL: vaginal anti-fungal cream-reaction: hives Social: denies tobacco, occasional ETOH, denies illicit drugs; works at [employer] Hx: Father : T2DM Present on Admission - Present on Admission Any Indicators Present on Admission: No Review of Systems - Constitutional Constitutional: Chills, Fever. absent: Weakness - EENT Eyes: absent: Blurred Vision, Change in Vision Ears: absent: Decreased Hearing - Cardiovascular Cardiovascular: Dyspnea, Dyspnea on Exertion. absent: Chest Pain, Chest Pain at Rest, Diaphoresis, Leg Edema, Palpitations - Respiratory Respiratory: Cough (yellow-red sputum), Dyspnea, Chest Congestion, Pain with Coughing. absent: Hemoptysis, Wheezing - Gastrointestinal Gastrointestinal: Abdominal Pain (minimal at site of surgery). absent: Diarrhea , Nausea, Vomiting - Genitourinary Genitourinary: absent: Dysuria - Musculoskeletal Musculoskeletal: absent: Back Pain, Numbness, Tingling - Integumentary Additional comments: c/d/i bandages on abdomen s/p appendix surgery - Neurological Neurological: absent: Confusion, Tingling, Weakness - Psychiatric Psychiatric: absent: Anxiety, Depression - Endocrine Endocrine: absent: Fatigue Past Patient History - Past Medical History & Family History Past Medical History?: No - Past Social History Smoking Status: Never Smoked - CARDIAC Hx Cardiac Disorders: No - PULMONARY Hx Respiratory Disorders: No - NEUROLOGICAL Hx Neurological Disorder: No - HEENT Hx HEENT Problems: No - RENAL Hx Chronic Kidney Disease: No - ENDOCRINE/METABOLIC Hx Endocrine Disorders: No Other/Comment: Gestational diabetes - HEMATOLOGICAL/ONCOLOGICAL Hx Blood Disorders: No - INTEGUMENTARY Hx Dermatological Problems: No - MUSCULOSKELETAL/RHEUMATOLOGICAL Hx Musculoskeletal Disorders: No Hx Falls: No - GASTROINTESTINAL Hx Gastrointestinal Disorders: No - GENITOURINARY/GYNECOLOGICAL Hx Genitourinary Disorders: No - PSYCHIATRIC Hx Substance Use: No - SURGICAL HISTORY Hx Surgeries: No - ANESTHESIA Hx Anesthesia: No Meds Allergies/Adverse Reactions: Allergies Allergy/AdvReac Type Severity Reaction Status Date / Time No Known Allergies Allergy Verified 10/24/16 04:34 Physical Exam - Constitutional Appears: Non-toxic, No Acute Distress - Head Exam Head Exam: ATRAUMATIC, NORMOCEPHALIC - Eye Exam Eye Exam: EOMI, PERRL - ENT Exam ENT Exam: Mucous Membranes Moist - Neck Exam Neck exam: Positive for: Normal Inspection. Negative for: Lymphadenopathy - Respiratory Exam Respiratory Exam: Rhonchi (worse in right lower lobe). absent: Accessory Muscle Use, Rales, Wheezes, Respiratory Distress - Cardiovascular Exam Cardiovascular Exam: Tachycardia (recent duoneb treatment), +S1, +S2. absent: + S4, Systolic Murmur Additional comments: PMI non-displaced, No S4 appreciated - GI/Abdominal Exam GI & Abdominal Exam: Hypoactive Bowel Sounds, Soft, Tenderness. absent: Distended, Firm Additional comments: around site of abdominal appendectomy surgery - Extremities Exam Extremities exam: Positive for: normal inspection. Negative for: pedal edema - Back Exam Back exam: absent: CVA tenderness (L), CVA tenderness (R) - Neurological Exam Neurological exam: Alert, Oriented x3 - Psychiatric Exam Psychiatric exam: Normal Affect, Normal Mood - Skin Skin Exam: Normal Color, Warm Results - Vital Signs Recent Vital Signs: Last Vital Signs Temp 100.2 F H 10/24/16 06:13 Pulse 89 10/24/16 06:13 Resp 27 H 10/24/16 07:13 BP 116/69 10/24/16 06:13 Pulse Ox 96 10/24/16 07:19 - Labs Result Diagrams: 10/24/16 05:00 10/24/16 05:00 Labs: Laboratory Results - last 24 hr 10/24/16 10/24/16 10/24/16 05:00 05:00 05:00 WBC 15.0 H RBC 3.64 L Hgb 10.7 L Hct 32.1 L MCV 88.2 MCH 29.5 MCHC 33.5 RDW 12.6 Plt Count 229 MPV 8.1 Neut % (Auto) 87.8 H Lymph % (Auto) 8.0 L [place] % (Auto) 3.6 Eos % (Auto) 0.1 Baso % (Auto) 0.5 Neut # 13.2 H Lymph # 1.2 [place] # 0.5 Eos # 0.0 Baso # 0.1 Neutrophils % (Manual) 77 H Band Neutrophils % 5 H Lymphocytes % (Manual) 14 L Monocytes % (Manual) 2 Eosinophils % (Manual) 2 Platelet Estimate Normal PT 12.2 INR 1.1 APTT 19 L D Puncture Site pCO2 pO2 HCO3 ABG pH ABG Total CO2 ABG O2 Saturation ABG Base Excess Abiel Test ABG Potassium Glucose Lactate Liter Flow Crit Value Called To Crit Value Called By Crit Value Read Back Blood Gas Notified Time Sodium 136 Potassium 3.3 L Chloride 100 Carbon Dioxide 24 Anion Gap 15 BUN 8 Creatinine 0.5 L Est GFR ( Amer) > 60 Est GFR (Non-Af Amer) > 60 Random Glucose 112 H Calcium 7.9 L Total Bilirubin 1.3 AST 30 ALT 31 Alkaline Phosphatase 46 Troponin I 0.2620 H* Total Protein 6.6 Albumin 3.3 L D Globulin 3.3 Albumin/Globulin Ratio 1.0 Arterial Blood Potassium 10/24/16 05:26 WBC RBC Hgb Hct MCV MCH MCHC RDW Plt Count MPV Neut % (Auto) Lymph % (Auto) [place] % (Auto) Eos % (Auto) Baso % (Auto) Neut # Lymph # [place] # Eos # Baso # Neutrophils % (Manual) Band Neutrophils % Lymphocytes % (Manual) Monocytes % (Manual) Eosinophils % (Manual) Platelet Estimate PT INR APTT Puncture Site Rt brac pCO2 38 pO2 102 H HCO3 24.7 ABG pH 7.41 ABG Total CO2 25.3 ABG O2 Saturation 99.0 H ABG Base Excess -0.3 Abiel Test Pos ABG Potassium 2.8 L Glucose 110 H Lactate 0.7 Liter Flow 15.0 Crit Value Called To Md estevan ny Crit Value Called By R alert information technology project manager Crit Value Read Back Y Blood Gas Notified Time 540 Sodium 137.0 Potassium Chloride 109.0 H Carbon Dioxide Anion Gap BUN Creatinine Est GFR ( Amer) Est GFR (Non-Af Amer) Random Glucose Calcium Total Bilirubin AST ALT Alkaline Phosphatase Troponin I Total Protein Albumin Globulin Albumin/Globulin Ratio Arterial Blood Potassium 2.8 L Assessment & Plan - Assessment and Plan (Free Text) Plan: 1. Sepsis Criteria (WBC >12k, HR >100, RR>20) Source: pneumonia Lactate on ABG 0.7 NS 1L bolus given; NS @ 100cc/hr 2. Hospital Aquired Pneumonia Admit to tele Aspiration precautions, Incentive spiromety WBC 15 Procalcitonin 2.19 (elevated) CT Chest (10/22/16): No PE. Extensive atelectasis and pleural effusions with mild pulmonary venous congestion. (see full report) CXR (10/22/16): Poor inspiration with low lung volumes. Crowded bronchovascular markings and mild bibasilar atelectasis and/or developing lower lobe infiltrates. Central pulmonary vasculature slightly increased as well, which could be due to low lung volumes however possibility of mild pulmonary edema/ CHF not excluded. (see full report) Zosyn and Vancomycin given once in ED Cefepime 1gm IV Daily Azithromycin 500mg IV Daily Florastor 250mg PO BID Duonebs Q4H Mucinex 600mg PO Q12H f/u blood, sputum, urine cultures, MRSA screen ICU consult: Dr. Cardenas - pt ok for tele Pulm consult: Dr. Peace - f/u reccs ID consult: Dr. Villalpando - f/u cultures - sputum culture may need induction PSI score 50pts (0.6-0.9% mortality) - Criteria (+ pleural effision, RR> 29, Female subtracts 10 pts) 3. Elevated troponin Believed secondary to demand ischemia Troponin 0.21 initial - f/u Q6H EKG: Sinus tachycardia, Right axis deviation - f/u Q6H ASA 325mg PO given once in ED f/u lipid panel, A1C, TSH Cardio consult: Dr. Phillips - f/u reccs 4. Hypokalemia 3.5 on admission; repleted - f/u AM labs 5. Constipation Pt reports no BM since surgery, passing flatus Abd xray (10/24/16): Unremarkable gas pattern. (see full report) Colace 100mg PO BID Miralax 6. Fever Tmax 100.7 Tylenol 650mg PO UA: Sq Epithelial 83, Trace LE, negative nitrates, WBC 16, RBC 5 - poor catch, will repeat f/u Urine culture 7. Postoperative Appendectomy POD #[address] Malloy - no surgical intervention at this time 8. PPX DVT proph - lovenox GI proph - not currently indicated Full code Discussed with Dr. Yohannes Gr PGY-1 <Marily Sheffield V - Last Filed: 10/26/16 22:25> Results - Vital Signs Recent Vital Signs: Last Vital Signs Temp 98.4 F 10/26/16 16:25 Pulse 48 L 10/26/16 18:00 Resp 20 10/26/16 16:25 BP 155/94 H 10/26/16 16:25 Pulse Ox 95 10/26/16 16:25 - Labs Result Diagrams: 10/26/16 07:40 10/26/16 07:40 Labs: Laboratory Results - last 24 hr 10/26/16 10/26/16 10/26/16 07:40 07:40 07:40 WBC 6.8 RBC 3.12 L Hgb 9.4 L Hct 27.4 L MCV 87.9 MCH 30.1 MCHC 34.2 RDW 12.4 Plt Count 283 MPV 8.0 Neut % (Auto) 58.8 Lymph % (Auto) 31.6 [place] % (Auto) 7.1 Eos % (Auto) 2.0 Baso % (Auto) 0.5 Neut # 4.0 Lymph # 2.2 [place] # 0.5 Eos # 0.1 Baso # 0.0 Sodium 140 Potassium 3.8 Chloride 103 Carbon Dioxide 23 Anion Gap 18 BUN 4 L Creatinine 0.5 L Est GFR ( Amer) > 60 Est GFR (Non-Af Amer) > 60 Random Glucose 90 Calcium 8.5 L Phosphorus 4.9 H Magnesium 1.9 Total Bilirubin 1.0 AST 22 ALT 38 Alkaline Phosphatase 92 Total Protein 6.3 Albumin 3.1 L Globulin 3.2 Albumin/Globulin Ratio 1.0 Free T4 1.62 TSH 3rd Generation 4.10 Attending/Attestation - Attestation I have personally seen and examined this patient.: Yes I have fully participated in the care of the patient.: Yes I have reviewed all pertinent clinical information: Yes Notes (Text): This is late computer entry for 10/24/16. Patient seen, examined and case discussed with day-time resident. Patient seen and evaluated in the ED. Patient reports she started to feel unwell the night prior and reports she has been coughing quite a bit. Patient reports she took one pill of Augmentin that she was prescribed when she was discharged post-operative for appendectomy. Patient permits to speak regarding her medical health information in front of her friend who is at bedside. Patient has extensive pneumonia. Patient is not a smoker; nor has cardiac risk factors. Discussed with ED attending, Dr Ny for ICU evaluation given level of respiratory distress described during his time with the patient. Discussed with ICU attending, Dr. Tariq, patient is stable for the telemetry for floor. Code sepsis not called given Lactate is 0.7 on blood gas. Patient given IV abx and fluid bolus in the ED, will continue IV abx and maintenance IV fluids to treat for hospital acquired pneumonia. Ct Chest rule out PE given patient had recent surgery. Discussed admitting orders with day-time resident including: pulm consult, ID consult, surgery consult, and cardiology consult. Surgery consult for post-operative management given patient recently completed lap appendectomy Cardiology consult for nonstemi; patient does not have cardiac risk factors; under impression of demand ischemia given patient had recent surgery and has extensive pneumonia. Infectious disease for HAP Assessment/Plan 1. Sepsis * Criteria: (WBC >12k, HR >100, RR>20) Source: hospital acquired pneumonia * Lactate on ABG 0.7 * NS 1L bolus given; NS @ 100cc/hr * Procalcitonin 2.19 (elevated) * Zosyn and Vancomycin given once in ED * Cefepime 1gm IV Daily * Azithromycin 500mg IV Daily * Florastor 250mg PO BID * Blood cultures and urine studies drawn 2. Hospital Aquired Pneumonia * ICU evaluated patient-->stable for telemetry floor * Admit to tele * Aspiration precautions, Incentive spiromety * WBC 15 and Procalcitonin 2.19 (elevated) * CT Chest (10/22/16): No PE. Extensive atelectasis and pleural effusions with mild pulmonary venous congestion. (see full report) * CXR (10/22/16): Poor inspiration with low lung volumes. Crowded bronchovascular markings and mild bibasilar atelectasis and/or developing lower lobe infiltrates. Central pulmonary vasculature slightly increased as well, which could be due to low lung volumes however possibility of mild pulmonary edema/CHF not excluded. (see full report) * Abx: Zosyn and Vancomycin given once in ED-->then Cefepime 1gm IV Daily and Azithromycin 500mg IV Daily * Florastor 250mg PO BID * Duonebs Q4H * Mucinex 600mg PO Q12H * f/u blood, sputum, urine cultures, MRSA screen * Pulm consult: Dr. Peace-->hospital acquired pneumonia * ID consult: Dr. Villalpando-->f/u cultures and sputum culture may need induction * Pneumonia Severity Index score 50pts (0.6-0.9% mortality) based on Criteria ( + pleural effision, RR> 29, Female subtracts 10 pts) 3. Nonstemi * Believed secondary to demand ischemia * Troponin 0.21 initial-->Ordered for PAM and EKG, Q6 hours * ASA 325mg PO given once in ED * f/u lipid panel, A1C, TSH * Cardiology consult: Dr. Phillips-->f/u reccs 4. Hypokalemia * 3.5 on admission; repleted-->f/u AM labs 5. Constipation * Pt reports no BM since surgery, passing flatus * Abd xray (10/24/16): Unremarkable gas pattern. (see full report) * Colace 100mg PO BID * Miralax to help facilitate bowel movement 6. Fever * Tmax 100.7 * Tylenol 650mg PO Q6 hour PRN fever * UA: Sq Epithelial 83, Trace LE, negative nitrates, WBC 16, RBC 5-->poor catch , will repeat (contamination) * f/u Urine culture 7. Postoperative Appendectomy * Surgery consult Dr. Malloy-->no surgical intervention at this time 8. PPX * DVT proph - lovenox 40mg subq daily * GI proph - not currently indicated * Full code
--- NOTE | 2016-10-24 08:56 | RAD ---
PROCEDURE: CHEST RADIOGRAPH, 1 VIEW HISTORY: pneumonia, dyspnea COMPARISON: None available. FINDINGS: LUNGS: Poor inspiration with low lung volumes crowded bronchovascular markings and mild bibasilar atelectasis and or developing lower lobe infiltrates. . Central pulmonary vasculature is slightly increased as well which could be due to low lung volumes however possibility of mild pulmonary edema/ CHF not excluded. PLEURA: No pneumothorax or pleural fluid seen. CARDIOVASCULAR: Normal. OSSEOUS STRUCTURES: No significant abnormalities. VISUALIZED UPPER ABDOMEN: Normal. OTHER FINDINGS: None. IMPRESSION: Poor inspiration with low lung volumes crowded bronchovascular markings and mild bibasilar atelectasis and or developing lower lobe infiltrates. . Central pulmonary vasculature is slightly increased as well which could be due to low lung volumes however possibility of mild pulmonary edema/ CHF not excluded.
--- NOTE | 2016-10-24 09:41 | CT ---
PROCEDURE: CT Chest with contrast (Pulmonary Angiogram) HISTORY: SOB COMPARISON: None available. TECHNIQUE: Axial computed tomography images were obtained of the chest in the pulmonary arterial phase of enhancement. Coronal and sagittal reformatted images were created and reviewed. Intravenous contrast dose: 100 cc of Omnipaque 350 Radiation dose: Total exam DLP = 360 mGy-cm. This CT exam was performed using one or more of the following dose reduction techniques: Automated exposure control, adjustment of the mA and/or kV according to patient size, and/or use of iterative reconstruction technique. FINDINGS: PULMONARY ARTERIES: Unremarkable. No pulmonary embolism. AORTA: No acute findings. No thoracic aortic aneurysm. LUNGS: Extensive bibasilar atelectasis is noted. PLEURAL SPACES: Moderate bilateral pleural effusions. HEART: Unremarkable. No cardiomegaly. No significant pericardial effusion. LYMPH NODES: No lymphadenopathy. BONES, CHEST WALL: Unremarkable. No fracture or destructive lesion OTHER FINDINGS: Unremarkable. IMPRESSION: No pulmonary embolus. Extensive bibasilar atelectasis and pleural effusions with mild pulmonary venous congestion suggested.
[2016-10-24] MEDS: guaiFENesin 600 mg ER Tab PO SCH ×2 (09:52→21:27)
[2016-10-24] MEDS ORDERED: POLYETHYLENE GLYCOL 3350 17 GM/Dose PACKET PO ONE (10:00)
[2016-10-24] MEDS: Sodium Chloride 0.9% 1,000 ML IV SCH ×2 (10:29→19:58)
[2016-10-24] MEDS: Potassium Chloride 20 mEq ER Tab PO SCH ×2 (10:39→13:15)
[2016-10-24] MEDS: Saccharomyces Boulardi 250 mg Cap PO SCH ×2 (10:39→17:48)
[2016-10-24] MEDS: Azithromycin 500 MG in Sodium Chloride 0.9% 250 ML IVPB SCH (10:44)
[2016-10-24] MEDS ORDERED: Azithromycin 500mg/250ML NS 500 MG/250 ML BAG IVPB ONE (10:45)
[2016-10-24 10:52] LABS: HCG,QUALITATIVE URINE NEGATIVE (NEGATIVE)
[2016-10-24 10:57] LABS: SQUAMOUS EPITHIAL 83 /hpf (0-5); URINE BILIRUBIN NEGATIVE (NEGATIVE); URINE BLOOD NEGATIVE (NEGATIVE); URINE CLARITY Turbid (Clear); URINE COLOR Yellow (YELLOW); URINE GLUCOSE (UA) NORMAL (Normal); URINE LEUKOCYTE ESTERASE TRACE Leu/uL (Negative); URINE NITRATE NEGATIVE (NEGATIVE); URINE PROTEIN NEGATIVE (NEGATIVE)
[2016-10-24 10:58] LABS: URINE BACTERIA RARE (<OCC)
--- NOTE | 2016-10-24 11:41 | RAD ---
HISTORY: r/o obstruction COMPARISON: No prior. FINDINGS: BOWEL: Normal bowel gas pattern. No hepatic or splenic enlargement. No masses or abnormal calcifications. Excreted contrast material seen within urinary bladder. Surgical clips in right lower quadrant. BONES: Normal. OTHER FINDINGS: None. IMPRESSION: Unremarkable bowel gas pattern.
[2016-10-24 11:42] LABS: CK-MB 0.51 ng/mL (0.0-3.38)
[2016-10-24] MEDS ORDERED: Albuterol-Ipratrop 3 mg / 0.5 (3 ml) UD ONE (11:56)
--- NOTE | 2016-10-24 11:59 | CP.PCM.CON ---
History of Present Illness - History of Present Illness History of Present Illness: General Surgery consult note for Dr. Malloy -- Brianna Alatorre, PGY-I Pt S&E at bedside 28F who presents to the ED with SOB. Pt is s/p lap appendectomy, POD #1. Surgery was consulted to evaluate the pt for any post-op intervention. Pt experiencing some pain at surgical ncision sites. Denies chest pain, nausea, vomiting, or change in BM, or other complaints. PMH: Gestational Diabetes PSH: lap appendectomy ALL: vaginal anti-fungal cream--reaction: hives Social: denies tobacco, occasional ETOH, denies illicit drugs Review of Systems - Review of Systems All systems: reviewed and no additional remarkable complaints except - Constitutional Constitutional: absent: Chills, Fever - Cardiovascular Cardiovascular: absent: Chest Pain - Respiratory Respiratory: Cough, Dyspnea - Gastrointestinal Gastrointestinal: Abdominal Pain. absent: Constipation, Diarrhea, Nausea, Vomiting - Genitourinary Genitourinary: absent: Dysuria, Hematuria - Neurological Neurological: absent: Headaches Past Patient History - Past Medical History & Family History Past Medical History?: No - Past Social History Smoking Status: Never Smoked - CARDIAC Hx Cardiac Disorders: No - PULMONARY Hx Respiratory Disorders: No - NEUROLOGICAL Hx Neurological Disorder: No - HEENT Hx HEENT Problems: No - RENAL Hx Chronic Kidney Disease: No - ENDOCRINE/METABOLIC Hx Endocrine Disorders: No Other/Comment: Gestational diabetes - HEMATOLOGICAL/ONCOLOGICAL Hx Blood Disorders: No - INTEGUMENTARY Hx Dermatological Problems: No - MUSCULOSKELETAL/RHEUMATOLOGICAL Hx Musculoskeletal Disorders: No Hx Falls: No - GASTROINTESTINAL Hx Gastrointestinal Disorders: No - GENITOURINARY/GYNECOLOGICAL Hx Genitourinary Disorders: No - PSYCHIATRIC Hx Substance Use: No - SURGICAL HISTORY Hx Surgeries: No - ANESTHESIA Hx Anesthesia: No Meds Allergies/Adverse Reactions: Allergies Allergy/AdvReac Type Severity Reaction Status Date / Time No Known Allergies Allergy Verified 10/24/16 04:34 - Medications Medications: Current Medications Acetaminophen (Tylenol 325mg Tab) 650 mg PO Q6 PRN PRN Reason: Fever >100.4 F Albuterol/Ipratropium (Duoneb 3 Mg/0.5 Mg (3 Ml) Ud) 3 ml INH RQ4 [facility] Docusate Sodium (Colace) 100 mg PO BID [facility] Last Admin: 10/24/16 10:39 Dose: 100 mg Guaifenesin (Mucinex La) 600 mg PO Q12 [facility] Last Admin: 10/24/16 09:52 Dose: 600 mg Cefepime HCl (Maxipime Iv 1 Gm Premix) 1 gm in 50 mls @ 100 mls/hr IVPB DAILY [facility] Azithromycin 500 mg/ Sodium (Chloride) 250 mls @ 166.667 mls/hr IVPB Q24H [facility] Last Admin: 10/24/16 10:44 Dose: 166.667 mls/hr Sodium Chloride (Sodium Chloride 0.9%) 1,000 mls @ 100 mls/hr IV .Q10H [facility] Last Admin: 10/24/16 10:29 Dose: 100 mls/hr Potassium Chloride (K-Dur 20 Meq Er Tab) 40 meq PO Q4H [facility] Stop: 10/24/16 14:01 Last Admin: 10/24/16 10:39 Dose: 40 meq Saccharomyces Boulardii (Florastor) 250 mg PO BID [facility] Last Admin: 10/24/16 10:39 Dose: 250 mg Physical Exam - Constitutional Appears: Non-toxic, No Acute Distress - Head Exam Head Exam: ATRAUMATIC, NORMOCEPHALIC - Eye Exam Eye Exam: EOMI - ENT Exam ENT Exam: Mucous Membranes Moist - Neck Exam Neck exam: Positive for: Full Rom - Respiratory Exam Respiratory Exam: absent: Accessory Muscle Use, Rales, Rhonchi, Wheezes, Respiratory Distress, NORMAL BREATHING PATTERN Additional comments: Shallow inspiratory effort - Cardiovascular Exam Cardiovascular Exam: REGULAR RHYTHM, +S1, +S2 - GI/Abdominal Exam GI & Abdominal Exam: Normal Bowel Sounds, Soft, Tenderness (Appropriately TTP over surgical incision sites). absent: Distended, Firm, Guarding, Rigid - Extremities Exam Extremities exam: Positive for: normal inspection. Negative for: tenderness - Neurological Exam Neurological exam: Alert, CN II-XII Intact, Oriented x3 - Psychiatric Exam Psychiatric exam: Normal Affect, Normal Mood - Skin Skin Exam: Dry, Normal Color, Warm Additional comments: Surgical sites with island dressings intact. Dressings over abdominal area CDI Results - Vital Signs Recent Vital Signs: Last Vital Signs Temp 98.6 F 10/24/16 10:24 Pulse 77 10/24/16 10:13 Resp 21 10/24/16 10:13 BP 116/72 10/24/16 10:13 Pulse Ox 99 10/24/16 10:13 - Labs Result Diagrams: 10/24/16 05:00 10/24/16 05:00 Labs: Laboratory Results - last 24 hr 10/24/16 10/24/16 10:27 11:02 Total Creatine Kinase 76 CK-MB (Mass) 0.51 Troponin I, Quant 0.0680 Urine Color Yellow Urine Clarity Turbid Urine pH 6.0 Ur Specific [place] 1.044 H Urine Protein Negative Urine Glucose (UA) Normal Urine Ketones Trace Urine Blood Negative Urine Nitrate Negative Urine Bilirubin Negative Urine Urobilinogen 4.0 H Ur Leukocyte Esterase Trace Urine WBC (Auto) 16 H Urine RBC (Auto) 5 H Ur Squamous Epith Cells 83 H Urine Bacteria Rare Urine HCG, Qual Negative Assessment & Plan - Assessment and Plan (Free Text) Assessment: 31F POD #1 s/p lap appendectomy. Pt stable from a surgical standpoint. Plan: No surgical intervention is recommended at this time Encourage incentive spirometry Medical mgmt as per primary team Please re-consult as needed Thank you for this consult ROSE MARIE attending Celi, PGY-1 - Date & Time Date: 10/24/16 Time: 12:11
[2016-10-24] MEDS ORDERED: Cefepime IV 1 gm in Dextrose 1 GM/50 ML BAG IVPB SCH (12:00)
[2016-10-24] MEDS ORDERED: Acetaminophen 650mg/20.3ml solution UD PO PRN (12:24)
--- NOTE | 2016-10-24 16:09 | CARD ---
APPROVED REPORT EKG Measurement Heart [id number] <Conclusion> Sinus tachycardia Right axis deviation Abnormal ECG
--- NOTE | 2016-10-24 16:34 | CP.PCM.CON ---
History of Present Illness - History of Present Illness History of Present Illness: 31 yo female admitted with fever cough and SOB s/p Laparoscopic appendectomy 2 days [employer] found to have infiltrates on CXR and elevated troponins c/o fatigue weakness and SOB mild abd pain / decreased appettite PMH: Gestational Diabetes PSH: none ALL: vaginal anti-fungal cream--reaction: hives Social: denies tobacco, occasional ETOH, denies illicit drugs; works at [employer] Hx: Father : T2DM Review of Systems - Review of Systems All systems: reviewed and no additional remarkable complaints except - Constitutional Constitutional: As Per HPI - EENT Eyes: absent: As Per HPI, Blind Spots, Blurred Vision, Change in Vision, Decreased Night Vision, Diplopia, Discharge, Dry Eye, Exophthalmos, Floaters, Irritation, Itchy Eyes, Loss of Peripheral Vision, Pain, Photophobia, Requires Corrective Lenses, Sees Flashes, Spots in Vision, Tunnel Vision, Other Visual Disturbances, Loss of Vision, Other Ears: absent: As Per HPI, Decreased Hearing, Ear Discharge, Ear Pain, Tinnitus, Abnormal Hearing, Disequilibrium, Dizziness, Other Nose/Mouth/Throat: absent: As Per HPI, Epistaxis, Nasal Congestion, Nasal Discharge, Nasal Obstruction, Nasal Trauma, Nose Pain, Post Nasal Drip, Sinus Pain, Sinus Pressure, Bleeding Gums, Change in Voice, Dental Pain, Dry Mouth, Dysphagia, Halitosis, Hoarsness, Lip Swelling, Mouth Lesions, Mouth Pain, Odynophagia, Sore Throat, Throat Swelling, Tongue Swelling, Facial Pain, Neck Pain, Neck Mass, Other - Breasts Breasts: absent: As Per HPI, Change in Shape, Mass, Pain, Nipple Discharge, Nipple Inversion, Skin Changes, Swelling, Other - Cardiovascular Cardiovascular: As Per HPI - Respiratory Respiratory: absent: As Per HPI, Cough, Dyspnea, Hemoptysis, Dyspnea on Exertion , Wheezing, Snoring, Stridor, Pain on Inspiration, Chest Congestion, Excessive Mucous Production, Change in Mucous Color, Pain with Coughing, Other - Gastrointestinal Gastrointestinal: As Per HPI - Genitourinary Genitourinary: absent: As Per HPI, Change in Urinary Stream, Difficulty Urinating, Dysuria, Flank Pain, Hematuria, Pyuria, Nocturia, Urinary Incontinence, Urinary Frequency, Urinary Hesitance, Urinary Urgency, Voiding Freq/Small Amts, Freq UTI, Hx Renal/Bladder Calculi, Hx /Renal Surgery, Bladder Distension, Other - Reproductive: Female Reproductive:Female: absent: As Per HPI, Amenorrhea, Amenorrhea/ Control, Currently Menstual, Cycle <21 Days, Cycle >35 Days, Cycle Variable, Menses 1-7 Days, Menses >/= 8 Days, Menses Variable, Cycle > 4 Weeks Between, No Menses for 6 Months, Heavy Menses, Light Menses, Normal Menses, Spotting Between Cycles , S/P Hysterectomy, Menopausal, Post Menopausal, Premenarche, Abnormal Vaginal Bleeding, Dysmenorrhea, Dyspareunia, Genital Lesions, Genital Pruritis, Pelvic Pain, Prolapse Symptoms, Sexual Dysfunction, Vaginal Discharge, Vaginal Dryness , Vaginal Odor, Vaginal Pruritis, Other Past Patient History - Past Medical History & Family History Past Medical History?: No - Past Social History Smoking Status: Never Smoked - CARDIAC Hx Cardiac Disorders: No - PULMONARY Hx Respiratory Disorders: No - NEUROLOGICAL Hx Neurological Disorder: No - HEENT Hx HEENT Problems: No - RENAL Hx Chronic Kidney Disease: No - ENDOCRINE/METABOLIC Hx Endocrine Disorders: No Other/Comment: Gestational diabetes - HEMATOLOGICAL/ONCOLOGICAL Hx Blood Disorders: No - INTEGUMENTARY Hx Dermatological Problems: No - MUSCULOSKELETAL/RHEUMATOLOGICAL Hx Musculoskeletal Disorders: No Hx Falls: No - GASTROINTESTINAL Hx Gastrointestinal Disorders: No - GENITOURINARY/GYNECOLOGICAL Hx Genitourinary Disorders: No - PSYCHIATRIC Hx Substance Use: No - SURGICAL HISTORY Hx Surgeries: No - ANESTHESIA Hx Anesthesia: Yes Hx Anesthesia Reactions: No Meds Allergies/Adverse Reactions: Allergies Allergy/AdvReac Type Severity Reaction Status Date / Time No Known Allergies Allergy Verified 10/24/16 04:34 - Medications Medications: Current Medications Acetaminophen (Tylenol 325mg Tab) 650 mg PO Q6 PRN PRN Reason: Fever >100.4 F Acetaminophen (Tylenol 650mg/20.3ml Solution Ud) 650 mg PO Q6 PRN PRN Reason: Pain, moderate (4-7) Albuterol/Ipratropium (Duoneb 3 Mg/0.5 Mg (3 Ml) Ud) 3 ml INH RQ4 [facility] Last Admin: 10/24/16 16:07 Dose: 3 ml Docusate Sodium (Colace) 100 mg PO BID [facility] Last Admin: 10/24/16 10:39 Dose: 100 mg Guaifenesin (Mucinex La) 600 mg PO Q12 [facility] Last Admin: 10/24/16 09:52 Dose: 600 mg Cefepime HCl (Maxipime Iv 1 Gm Premix) 1 gm in 50 mls @ 100 mls/hr IVPB DAILY [facility] Last Admin: 10/24/16 13:15 Dose: 100 mls/hr Azithromycin 500 mg/ Sodium (Chloride) 250 mls @ 166.667 mls/hr IVPB Q24H [facility] Last Admin: 10/24/16 10:44 Dose: 166.667 mls/hr Sodium Chloride (Sodium Chloride 0.9%) 1,000 mls @ 100 mls/hr IV .Q10H [facility] Last Admin: 10/24/16 10:29 Dose: 100 mls/hr Pneumococcal Polyvalent Vaccine (Pneumovax 23 Vaccine) 0.5 ml IM .ONCE ONE Stop: 10/26/16 10:01 Saccharomyces Boulardii (Florastor) 250 mg PO BID [facility] Last Admin: 10/24/16 10:39 Dose: 250 mg Physical Exam - Constitutional Appears: Chronically Ill - Head Exam Head Exam: ATRAUMATIC, NORMAL INSPECTION, NORMOCEPHALIC - Eye Exam Eye Exam: absent: Scleral icterus - ENT Exam ENT Exam: Mucous Membranes Dry, Normal External Ear Exam - Neck Exam Neck exam: Negative for: Lymphadenopathy - Respiratory Exam Respiratory Exam: Decreased Breath Sounds, Rhonchi - Cardiovascular Exam Cardiovascular Exam: REGULAR RHYTHM, +S1, +S2 - GI/Abdominal Exam GI & Abdominal Exam: Diminished Bowel Sounds, Soft, Tenderness - Rectal Exam Rectal Exam: Deferred - Exam Exam: NORMAL INSPECTION - Extremities Exam Extremities exam: Negative for: calf tenderness, pedal edema - Back Exam Back exam: absent: CVA tenderness (L), CVA tenderness (R) - Neurological Exam Neurological exam: Alert, CN II-XII Intact, Oriented x3, Reflexes Normal - Psychiatric Exam Psychiatric exam: Normal Mood Results - Vital Signs Recent Vital Signs: Last Vital Signs Temp 98.6 F 10/24/16 10:24 Pulse 82 10/24/16 13:32 Resp 22 10/24/16 13:32 BP 108/71 10/24/16 12:30 Pulse Ox 95 10/24/16 13:32 - Labs Result Diagrams: 10/24/16 05:00 10/24/16 05:00 Labs: Laboratory Results - last 24 hr 10/24/16 10/24/16 10/24/16 10:27 11:02 11:37 Hemoglobin A1c 5.3 Total Creatine Kinase 76 CK-MB (Mass) 0.51 Troponin I, Quant 0.0680 Urine Color Yellow Urine Clarity Turbid Urine pH 6.0 Ur Specific [place] 1.044 H Urine Protein Negative Urine Glucose (UA) Normal Urine Ketones Trace Urine Blood Negative Urine Nitrate Negative Urine Bilirubin Negative Urine Urobilinogen 4.0 H Ur Leukocyte Esterase Trace Urine WBC (Auto) 16 H Urine RBC (Auto) 5 H Ur Squamous Epith Cells 83 H Urine Bacteria Rare Urine HCG, Qual Negative Assessment & Plan (1) NSTEMI (non-ST elevated myocardial infarction) Status: Acute (2) Pneumonia Status: Acute (3) Acute appendicitis Status: Acute - Assessment and Plan (Free Text) Assessment: consider ct angio chest if not done yet agree with cardio and pulm eval consider telemetry monitoring await cultures cont iv antibiotics - zosyn pending ID and sensitivity- may need sputum induction
[2016-10-24] MEDS: Piperacill/Tazo 3.375gm in Dex 3.375 GM/50 ML BAG IVPB SCH (17:22)
[2016-10-24 17:40] LABS: CK-MB 0.55 ng/mL (0.0-3.38)
[2016-10-25] MEDS: Piperacill/Tazo 3.375gm in Dex 3.375 GM/50 ML BAG IVPB SCH ×5 (00:20→23:46)
[2016-10-25] MEDS: Albuterol-Ipratrop 3 mg / 0.5 (3 ml) UD INH SCH ×7 (01:46→19:55)
[2016-10-25] MEDS: Sodium Chloride 0.9% 1,000 ML IV SCH ×2 (06:10→16:01)
--- NOTE | 2016-10-25 08:19 | CP.PCM.PN ---
<Vitaliy Gr - Last Filed: 10/25/16 13:54> Subjective - Date & Time of Evaluation Date of Evaluation: 10/25/16 Time of Evaluation: 08:19 - Subjective Subjective: PGY-[address] Nichole's service: Pt seen and examined at bedside. Nursing reports no acute events overnight. Pt afebrile overnight. Pt found resting comfortably in bed. She reports feeling much better since admission. She is found breathing on room air, and notes she is able to get up to go to bathroom without difficulty, which she struggled to do when at home. She states her post-surgical abdominal pain is controlled, and denies episodes of nausea or vomiting. She further denies any episodes of chest pain, palpitations, shortness of breath, headache or constipation. Objective - Vital Signs/Intake and Output Vital Signs (last 24 hours): Temp Pulse Resp BP Pulse Ox 99.9 F H 93 H 20 126/82 95 10/25/16 07:17 10/25/16 07:17 10/25/16 07:17 10/25/16 07:17 10/25/16 07:17 Intake and Output: 10/25/16 10/25/16 06:59 18:59 Intake Total 790 650 Balance 790 650 - Medications Medications: Current Medications Acetaminophen (Tylenol 325mg Tab) 650 mg PO Q6 PRN PRN Reason: Fever >100.4 F Acetaminophen (Tylenol 650mg/20.3ml Solution Ud) 650 mg PO Q6 PRN PRN Reason: Pain, moderate (4-7) Albuterol/Ipratropium (Duoneb 3 Mg/0.5 Mg (3 Ml) Ud) 3 ml INH RQ4 [facility] Last Admin: 10/25/16 08:06 Dose: 3 ml Docusate Sodium (Colace) 100 mg PO BID [facility] Last Admin: 10/24/16 17:49 Dose: Not Given Guaifenesin (Mucinex La) 600 mg PO Q12 [facility] Last Admin: 10/24/16 21:27 Dose: 600 mg Azithromycin 500 mg/ Sodium (Chloride) 250 mls @ 166.667 mls/hr IVPB Q24H [facility] Last Admin: 10/24/16 10:44 Dose: 166.667 mls/hr Sodium Chloride (Sodium Chloride 0.9%) 1,000 mls @ 100 mls/hr IV .Q10H [facility] Last Admin: 10/25/16 06:10 Dose: 100 mls/hr Piperacillin Sod/Tazobactam Sod (Zosyn 3.375 Gm Iv Premix) 3.375 gm in 50 mls @ 100 mls/hr IVPB Q6 [facility] Last Admin: 10/25/16 07:05 Dose: 100 mls/hr Pneumococcal Polyvalent Vaccine (Pneumovax 23 Vaccine) 0.5 ml IM .ONCE ONE Stop: 10/26/16 10:01 Saccharomyces Boulardii (Florastor) 250 mg PO BID [facility] Last Admin: 10/24/16 17:48 Dose: 250 mg - Labs Labs: PT 12.2 SECONDS (9.7-12.2) 10/24/16 05:00 INR 1.1 10/24/16 05:00 APTT 19 SECONDS (21-34) L D 10/24/16 05:00 - Constitutional Appears: Non-toxic, No Acute Distress - Head Exam Head Exam: NORMAL INSPECTION, NORMOCEPHALIC - Eye Exam Eye Exam: EOMI. absent: Scleral icterus Pupil Exam: PERRL - Respiratory Exam Respiratory Exam: Rhonchi (worse on right). absent: Accessory Muscle Use, Chest Wall Tenderness, Rales - Cardiovascular Exam Cardiovascular Exam: REGULAR RHYTHM, +S1, +S2. absent: Tachycardia - GI/Abdominal Exam GI & Abdominal Exam: Soft, Tenderness (around abd surgical site), Normal Bowel Sounds. absent: Distended - Extremities Exam Extremities Exam: Normal Inspection. absent: Pedal Edema - Neurological Exam Neurological Exam: Alert, Awake, Oriented x3 - Psychiatric Exam Psychiatric exam: Normal Affect, Normal Mood - Skin Skin Exam: Normal Color, Warm Additional comments: dressing on abdomen over incision sites Assessment and Plan - Assessment and Plan (Free Text) Plan: 1. Sepsis Criteria (WBC >12k, HR >100, RR>20) Source: hospital acquired pneumonia Lactate on ABG 0.7 on admission NS 1L bolus given; NS @ 100cc/hr 10/25/16 Leukocytosis resolved, Non tachypneic - WBC 8.7, from 15 No longer meets meets SIRS/sepsis criteria 2. Hospital Aquired Pneumonia Admit to tele Pt POD # [address] Malloy - limited activity level, no spirometry use as outpatient since surgery Aspiration precautions, Incentive spiromety WBC downtrending since admission Procalcitonin 2.19 (elevated) CT Chest (10/22/16): No PE. Extensive atelectasis and pleural effusions with mild pulmonary venous congestion. (see full report) CXR (10/22/16): Poor inspiration with low lung volumes. Crowded bronchovascular markings and mild bibasilar atelectasis and/or developing lower lobe infiltrates. Central pulmonary vasculature slightly increased as well, which could be due to low lung volumes however possibility of mild pulmonary edema/ CHF not excluded. (see full report) Zosyn and Vancomycin given once in ED Cefepime 1gm IV Daily (first dose 10/24/16) Azithromycin 500mg IV Daily (first dose 10/24/16) Florastor 250mg PO BID Duonebs Q4H Mucinex 600mg PO Q12H blood culture (10/24/16): blood culture x 24 hrs urine culture (10/24/16): No growth MRSA screen (10/24/16): Not detected ICU consult: Dr. Cardenas - pt stable for tele monitoring Pulm consult: Dr. Peace - f/u reccs ID consult: Dr. Villalpando - sputum culture may need induction PSI score 50pts (0.6-0.9% mortality) - Criteria (+ pleural effision, RR> 29, Female subtracts 10 pts) 3. Elevated troponin Believed secondary to demand ischemia Troponin downtrending (0.2620, 0.0680, 0.0270) EKG: Sinus tachycardia, Right axis deviation (initial) ASA 325mg PO given once in ED Lipid panel WNL A1C 5.3 f/u TSH Cardio consult: Dr. Phillips, help appreciated - Spoke with Dr. Phillips, he believes demand ischemia caused initial troponin elevation 4. Hypokalemia Resolved 3.9 on admission; repleted 5. Constipation Pt reports no BM since surgery, passing flatus Abd xray (10/24/16): Unremarkable gas pattern. (see full report) Colace 100mg PO BID [facility] 6. Fever Febrile on admission (Tmax 100.7) - Afebrile overnight (Tmax 99.9) Tylenol 650mg PO UA: Sq Epithelial 83, Trace LE, negative nitrates, WBC 16, RBC 5 - poor catch, will repeat urine culture (10/24/16): No growth 7. Postoperative Appendectomy POD #[address] Malloy - no surgical intervention at this time 8. PPX DVT proph - lovenox GI proph - not currently indicated Full code Discussed with Dr. Dayanara Gr PGY-1 <Isreal Nichole M - Last Filed: 10/25/16 17:20> Objective - Vital Signs/Intake and Output Vital Signs (last 24 hours): Temp Pulse Resp BP Pulse Ox 98.1 F 72 16 138/68 95 10/25/16 16:30 10/25/16 16:30 10/25/16 16:30 10/25/16 16:30 10/25/16 16:30 Intake and Output: 10/25/16 10/25/16 06:59 18:59 Intake Total 790 2040 Balance 790 2040 - Medications Medications: Current Medications Acetaminophen (Tylenol 325mg Tab) 650 mg PO Q6 PRN PRN Reason: Fever >100.4 F Acetaminophen (Tylenol 650mg/20.3ml Solution Ud) 650 mg PO Q6 PRN PRN Reason: Pain, moderate (4-7) Albuterol/Ipratropium (Duoneb 3 Mg/0.5 Mg (3 Ml) Ud) 3 ml INH RQ4 [facility] Last Admin: 10/25/16 16:25 Dose: 3 ml Docusate Sodium (Colace) 100 mg PO BID [facility] Last Admin: 10/25/16 10:34 Dose: 100 mg Guaifenesin (Mucinex La) 600 mg PO Q12 [facility] Last Admin: 10/25/16 10:34 Dose: 600 mg Azithromycin 500 mg/ Sodium (Chloride) 250 mls @ 166.667 mls/hr IVPB Q24H [facility] Last Admin: 10/25/16 10:34 Dose: 166.667 mls/hr Sodium Chloride (Sodium Chloride 0.9%) 1,000 mls @ 100 mls/hr IV .Q10H [facility] Last Admin: 10/25/16 16:01 Dose: 100 mls/hr Piperacillin Sod/Tazobactam Sod (Zosyn 3.375 Gm Iv Premix) 3.375 gm in 50 mls @ 100 mls/hr IVPB Q6 [facility] Last Admin: 10/25/16 12:39 Dose: 100 mls/hr Pneumococcal Polyvalent Vaccine (Pneumovax 23 Vaccine) 0.5 ml IM .ONCE ONE Stop: 10/26/16 10:01 Saccharomyces Boulardii (Florastor) 250 mg PO BID [facility] Last Admin: 10/25/16 10:34 Dose: 250 mg - Labs Labs: 10/25/16 11:02 10/25/16 11:02 PT 12.2 SECONDS (9.7-12.2) 10/24/16 05:00 INR 1.1 10/24/16 05:00 APTT 19 SECONDS (21-34) L D 10/24/16 05:00 Attending/Attestation - Attestation I have personally seen and examined this patient.: Yes I have fully participated in the care of the patient.: Yes I have reviewed all pertinent clinical information, including history, physical exam and plan: Yes Notes (Text): 10/25/16 17:20 Patient seen and examined at bedside Patient is feeling much better. Clinically improving. Continue antibiotics for sepsis Discussed the plan of care with the resident and agree with the history and physical and assessment/plan document by the resident
[2016-10-25] MEDS: Saccharomyces Boulardi 250 mg Cap PO SCH ×2 (10:34→17:26)
[2016-10-25] MEDS: guaiFENesin 600 mg ER Tab PO SCH ×2 (10:34→21:30)
[2016-10-25] MEDS: Azithromycin 500 MG in Sodium Chloride 0.9% 250 ML IVPB SCH (10:34)
[2016-10-25 11:10] LABS: BASO # 0.1 K/uL (0.0-0.2); BASO % 0.6 % (0.0-2.0); EOS % 0.5 % (0.0-4.0); HEMOGLOBIN 10.2 g/dL (11.0-16.0); LYMPH # 1.9 K/uL (1.0-4.3); LYMPH % 21.4 % (20.0-40.0); MEAN CELL VOLUME 88.2 fL (81.0-99.0); MEAN CORPUSCULAR HEMOGLOBIN 30.2 pg (27.0-31.0); MEAN CORPUSCULAR HGB CONC 34.2 g/dL (33.0-37.0); MEAN PLATELET VOLUME 8.2 fL (7.2-11.7); MONO # 0.5 K/uL (0.0-0.8); MONO % 5.5 % (0.0-10.0); NEUT # 6.3 K/uL (1.8-7.0); RBC 3.4 Mil/uL (3.80-5.20); RED CELL DISTRIBUTION WIDTH 12.8 % (11.5-14.5); WHITE BLOOD COUNT 8.7 K/uL (4.8-10.8)
[2016-10-25 11:16] LABS: ALBUMIN 3.5 g/dL (3.5-5.0)
[2016-10-25 11:19] LABS: AST/SGOT 20 U/L (14-36); BLOOD UREA NITROGEN 3 mg/dL (7-17); GFR AFRICAN-AMERICAN > 60; GFR NON-AFRICAN AMERICAN > 60
[2016-10-25 11:20] LABS: ALT/SGPT 34 U/L (9-52); CALCIUM 8.9 mg/dl (8.6-10.4); MAGNESIUM 1.7 mg/dL (1.6-2.3)
--- NOTE | 2016-10-25 15:31 | CP.PCM.CON ---
History of Present Illness - History of Present Illness History of Present Illness: patient seen/examined. troponin noted. Patient denies cardiovascular symtptoms. will treat with current medical therapy. No cardiac ischemia. Past Patient History - Past Medical History & Family History Past Medical History?: No - Past Social History Smoking Status: Never Smoked - CARDIAC Hx Cardiac Disorders: No - PULMONARY Hx Respiratory Disorders: No - NEUROLOGICAL Hx Neurological Disorder: No - HEENT Hx HEENT Problems: No - RENAL Hx Chronic Kidney Disease: No - ENDOCRINE/METABOLIC Hx Endocrine Disorders: No Other/Comment: Gestational diabetes - HEMATOLOGICAL/ONCOLOGICAL Hx Blood Disorders: No - INTEGUMENTARY Hx Dermatological Problems: No - MUSCULOSKELETAL/RHEUMATOLOGICAL Hx Musculoskeletal Disorders: No Hx Falls: No - GASTROINTESTINAL Hx Gastrointestinal Disorders: No - GENITOURINARY/GYNECOLOGICAL Hx Genitourinary Disorders: No - PSYCHIATRIC Hx Substance Use: No - SURGICAL HISTORY Hx Surgeries: No - ANESTHESIA Hx Anesthesia: No Meds Allergies/Adverse Reactions: Allergies Allergy/AdvReac Type Severity Reaction Status Date / Time No Known Allergies Allergy Verified 10/24/16 04:34 - Medications Medications: Current Medications Acetaminophen (Tylenol 325mg Tab) 650 mg PO Q6 PRN PRN Reason: Fever >100.4 F Acetaminophen (Tylenol 650mg/20.3ml Solution Ud) 650 mg PO Q6 PRN PRN Reason: Pain, moderate (4-7) Albuterol/Ipratropium (Duoneb 3 Mg/0.5 Mg (3 Ml) Ud) 3 ml INH RQ4 [facility] Last Admin: 10/25/16 12:09 Dose: 3 ml Docusate Sodium (Colace) 100 mg PO BID [facility] Last Admin: 10/25/16 10:34 Dose: 100 mg Guaifenesin (Mucinex La) 600 mg PO Q12 [facility] Last Admin: 10/25/16 10:34 Dose: 600 mg Azithromycin 500 mg/ Sodium (Chloride) 250 mls @ 166.667 mls/hr IVPB Q24H [facility] Last Admin: 10/25/16 10:34 Dose: 166.667 mls/hr Sodium Chloride (Sodium Chloride 0.9%) 1,000 mls @ 100 mls/hr IV .Q10H [facility] Last Admin: 10/25/16 06:10 Dose: 100 mls/hr Piperacillin Sod/Tazobactam Sod (Zosyn 3.375 Gm Iv Premix) 3.375 gm in 50 mls @ 100 mls/hr IVPB Q6 [facility] Last Admin: 10/25/16 12:39 Dose: 100 mls/hr Pneumococcal Polyvalent Vaccine (Pneumovax 23 Vaccine) 0.5 ml IM .ONCE ONE Stop: 10/26/16 10:01 Saccharomyces Boulardii (Florastor) 250 mg PO BID [facility] Last Admin: 10/25/16 10:34 Dose: 250 mg Results - Vital Signs Recent Vital Signs: Last Vital Signs Temp 99.9 F H 10/25/16 07:17 Pulse 77 10/25/16 12:00 Resp 20 10/25/16 07:17 BP 126/82 10/25/16 07:17 Pulse Ox 95 10/25/16 07:17 - Labs Result Diagrams: 10/25/16 11:02 10/25/16 11:02 Labs: Laboratory Results - last 24 hr 10/24/16 10/24/16 10/25/16 11:36 17:08 11:02 WBC 8.7 RBC 3.40 L Hgb 10.2 L Hct 30.0 L MCV 88.2 MCH 30.2 MCHC 34.2 RDW 12.8 Plt Count 258 MPV 8.2 Neut % (Auto) 72.0 Lymph % (Auto) 21.4 [place] % (Auto) 5.5 Eos % (Auto) 0.5 Baso % (Auto) 0.6 Neut # 6.3 Lymph # 1.9 [place] # 0.5 Eos # 0.0 Baso # 0.1 Sodium Potassium Chloride Carbon Dioxide Anion Gap BUN Creatinine Est GFR ( Amer) Est GFR (Non-Af Amer) Random Glucose Calcium Phosphorus Magnesium Total Bilirubin AST ALT Alkaline Phosphatase Total Creatine Kinase 61 CK-MB (Mass) 0.55 Troponin I, Quant 0.0270 Total Protein Albumin Globulin Albumin/Globulin Ratio Triglycerides 146 Cholesterol 114 LDL Cholesterol Direct 57 HDL Cholesterol 33 Procalcitonin 2.19 H 10/25/16 11:02 WBC RBC Hgb Hct MCV MCH MCHC RDW Plt Count MPV Neut % (Auto) Lymph % (Auto) [place] % (Auto) Eos % (Auto) Baso % (Auto) Neut # Lymph # [place] # Eos # Baso # Sodium 138 Potassium 3.9 Chloride 102 Carbon Dioxide 22 Anion Gap 18 BUN 3 L Creatinine 0.4 L Est GFR ( Amer) > 60 Est GFR (Non-Af Amer) > 60 Random Glucose 136 H Calcium 8.9 Phosphorus 3.9 Magnesium 1.7 Total Bilirubin 1.1 AST 20 ALT 34 Alkaline Phosphatase 83 Total Creatine Kinase CK-MB (Mass) Troponin I, Quant Total Protein 7.0 Albumin 3.5 Globulin 3.5 Albumin/Globulin Ratio 1.0 Triglycerides Cholesterol LDL Cholesterol Direct HDL Cholesterol Procalcitonin
[2016-10-25 21:16] LABS: SQUAMOUS EPITHIAL < 1 /hpf (0-5); URINE BILIRUBIN NEGATIVE (NEGATIVE); URINE BLOOD NEGATIVE (NEGATIVE); URINE CLARITY Clear (Clear); URINE COLOR Straw (YELLOW); URINE GLUCOSE (UA) NORMAL (Normal); URINE LEUKOCYTE ESTERASE NEG Leu/uL (Negative); URINE NITRATE NEGATIVE (NEGATIVE); URINE PROTEIN NEGATIVE (NEGATIVE); URINE UROBILINOGEN NORMAL mg/dL (0.2-1.0)
[2016-10-26 00:04] VITALS: RESP 20
[2016-10-26] MEDS: Albuterol-Ipratrop 3 mg / 0.5 (3 ml) UD INH SCH ×5 (00:51→15:44)
[2016-10-26] MEDS: Sodium Chloride 0.9% 1,000 ML IV SCH ×3 (04:30→14:54)
[2016-10-26] MEDS: Piperacill/Tazo 3.375gm in Dex 3.375 GM/50 ML BAG IVPB SCH ×3 (06:07→17:25)
--- NOTE | 2016-10-26 07:05 | CP.PCM.PN ---
<Vitaliy Gr - Last Filed: 10/26/16 16:19> Subjective - Date & Time of Evaluation Date of Evaluation: 10/26/16 Time of Evaluation: 07:04 - Subjective Subjective: PGY-[address] Nichole's service: Pt seen and examined at bedside. Nursing reports no acute events overnight. Pt afebrile overnight. Pt found sitting comfortably at edge of bed. She reports no complaints at this time. She denies difficulty breathing and is able to stroll around her room and nurses station without She denies abdominal pain and has not been requesting pain medication. She further denies episodes of chest pain, palpitations, shortness of breath, headache, subjective fever, chills, or constipation. Objective - Vital Signs/Intake and Output Vital Signs (last 24 hours): Temp Pulse Resp BP Pulse Ox 97.8 F 70 20 134/75 97 10/25/16 23:30 10/25/16 23:30 10/25/16 23:30 10/25/16 23:30 10/25/16 23:30 - Medications Medications: Current Medications Acetaminophen (Tylenol 325mg Tab) 650 mg PO Q6 PRN PRN Reason: Fever >100.4 F Acetaminophen (Tylenol 650mg/20.3ml Solution Ud) 650 mg PO Q6 PRN PRN Reason: Pain, moderate (4-7) Albuterol/Ipratropium (Duoneb 3 Mg/0.5 Mg (3 Ml) Ud) 3 ml INH RQ4 [facility] Last Admin: 10/26/16 04:13 Dose: Not Given Docusate Sodium (Colace) 100 mg PO BID [facility] Last Admin: 10/25/16 17:26 Dose: 100 mg Guaifenesin (Mucinex La) 600 mg PO Q12 [facility] Last Admin: 10/25/16 21:30 Dose: 600 mg Azithromycin 500 mg/ Sodium (Chloride) 250 mls @ 166.667 mls/hr IVPB Q24H [facility] Last Admin: 10/25/16 10:34 Dose: 166.667 mls/hr Sodium Chloride (Sodium Chloride 0.9%) 1,000 mls @ 100 mls/hr IV .Q10H [facility] Last Admin: 10/26/16 04:30 Dose: 100 mls/hr Piperacillin Sod/Tazobactam Sod (Zosyn 3.375 Gm Iv Premix) 3.375 gm in 50 mls @ 100 mls/hr IVPB Q6 [facility] Last Admin: 10/26/16 06:07 Dose: 100 mls/hr Pneumococcal Polyvalent Vaccine (Pneumovax 23 Vaccine) 0.5 ml IM .ONCE ONE Stop: 10/26/16 10:01 Saccharomyces Boulardii (Florastor) 250 mg PO BID [facility] Last Admin: 10/25/16 17:26 Dose: 250 mg - Labs Labs: 10/25/16 11:02 10/25/16 11:02 PT 12.2 SECONDS (9.7-12.2) 10/24/16 05:00 INR 1.1 10/24/16 05:00 APTT 19 SECONDS (21-34) L D 10/24/16 05:00 - Constitutional Appears: Non-toxic, No Acute Distress - Head Exam Head Exam: ATRAUMATIC, NORMAL INSPECTION, NORMOCEPHALIC - Eye Exam Eye Exam: EOMI. absent: Scleral icterus Pupil Exam: PERRL - ENT Exam ENT Exam: Mucous Membranes Moist - Respiratory Exam Respiratory Exam: Rhonchi (slight on right, improving from admission), NORMAL BREATHING PATTERN - Cardiovascular Exam Cardiovascular Exam: REGULAR RHYTHM, +S1, +S2 - GI/Abdominal Exam GI & Abdominal Exam: Soft, Tenderness (minimal around surgical site, bandage c/d /i), Normal Bowel Sounds - Extremities Exam Extremities Exam: Normal Inspection. absent: Pedal Edema, Tenderness - Neurological Exam Neurological Exam: Alert, Awake, Oriented x3 - Psychiatric Exam Psychiatric exam: Normal Affect, Normal Mood - Skin Skin Exam: Normal Color, Warm Assessment and Plan - Assessment and Plan (Free Text) Plan: 1. Sepsis Criteria (WBC >12k, HR >100, RR>20) Source: hospital acquired pneumonia Lactate on ABG 0.7 on admission NS 1L bolus given; NS @ 100cc/hr 10/26/16 Leukocytosis resolved, Non tachypneic - WBC 6.8, from 15 No longer meets meets SIRS/sepsis criteria 2. Hospital Aquired Pneumonia Admit to tele Pt POD # [address] Malloy - limited activity level, no spirometry use as outpatient since surgery Aspiration precautions, Incentive spiromety WBC downtrending since admission Procalcitonin 2.19 (elevated) CT Chest (10/22/16): No PE. Extensive atelectasis and pleural effusions with mild pulmonary venous congestion. (see full report) CXR (10/22/16): Poor inspiration with low lung volumes. Crowded bronchovascular markings and mild bibasilar atelectasis and/or developing lower lobe infiltrates. Central pulmonary vasculature slightly increased as well, which could be due to low lung volumes however possibility of mild pulmonary edema/ CHF not excluded. (see full report) Zosyn and Vancomycin given once in ED Cefepime 1gm IV Daily (first dose 10/24/16) Azithromycin 500mg IV Daily (first dose 10/24/16) Florastor 250mg PO BID Duonebs Q4H PRN SOB Mucinex 600mg PO Q12H blood culture (10/24/16): blood culture x 48 hrs urine culture (10/24/16): No growth MRSA screen (10/24/16): Not detected Sputum culture (10/25/16): Pending ICU consult: Dr. Cardenas - pt stable for tele monitoring Pulm consult: Dr. Peace - f/u reccs ID consult: Dr. Villalpando - sputum culture may need induction PSI score 50pts (0.6-0.9% mortality) - Criteria (+ pleural effision, RR> 29, Female subtracts 10 pts) 3. Elevated troponin Believed secondary to demand ischemia Troponin downtrending (0.2620, 0.0680, 0.0270) EKG: Sinus tachycardia, Right axis deviation (initial) ASA 325mg PO given once in ED Lipid panel WNL A1C 5.3 TSH WNL Cardio consult: Dr. Phillips, help appreciated - No cardiac ischemia 4. Hypokalemia Resolved 3.9 on admission; repleted 5. Constipation Pt reports no BM since surgery, passing flatus Abd xray (10/24/16): Unremarkable gas pattern. (see full report) Colace 100mg PO BID Miralax 6. Fever Febrile on admission (Tmax 100.7) - Afebrile overnight Tylenol 650mg PO UA: Sq Epithelial 83, Trace LE, negative nitrates, WBC 16, RBC 5 - repeat UA: WNL, clean catch urine culture (10/24/16): No growth 7. Postoperative Appendectomy POD #6 Appendectomy Surgery consult Dr. Arago - no surgical intervention required 8. PPX Pt ambulatory GI proph - not currently indicated Full code Discussed with Dr. Dayanara Gr PGY-1 <Isreal Nichole M - Last Filed: 10/26/16 16:55> Objective - Vital Signs/Intake and Output Vital Signs (last 24 hours): Temp Pulse Resp BP Pulse Ox 98.4 F 60 20 155/94 H 95 10/26/16 16:25 10/26/16 16:25 10/26/16 16:25 10/26/16 16:25 10/26/16 16:25 Intake and Output: 10/26/16 10/26/16 06:59 18:59 Intake Total 1300 Balance 1300 - Medications Medications: Current Medications Acetaminophen (Tylenol 325mg Tab) 650 mg PO Q6 PRN PRN Reason: Fever >100.4 F Acetaminophen (Tylenol 650mg/20.3ml Solution Ud) 650 mg PO Q6 PRN PRN Reason: Pain, moderate (4-7) Albuterol/Ipratropium (Duoneb 3 Mg/0.5 Mg (3 Ml) Ud) 3 ml INH Q4H PRN PRN Reason: Shortness of Breath Docusate Sodium (Colace) 100 mg PO BID [facility] Last Admin: 10/26/16 09:45 Dose: 100 mg Guaifenesin (Mucinex La) 600 mg PO Q12 [facility] Last Admin: 10/26/16 09:45 Dose: 600 mg Azithromycin 500 mg/ Sodium (Chloride) 250 mls @ 166.667 mls/hr IVPB Q24H [facility] Last Admin: 10/26/16 09:46 Dose: 166.667 mls/hr Piperacillin Sod/Tazobactam Sod (Zosyn 3.375 Gm Iv Premix) 3.375 gm in 50 mls @ 100 mls/hr IVPB Q6 [facility] Last Admin: 10/26/16 11:43 Dose: 100 mls/hr Pneumococcal Polyvalent Vaccine (Pneumovax 23 Vaccine) 0.5 ml IM .ONCE ONE Stop: 10/27/16 10:01 Saccharomyces Boulardii (Florastor) 250 mg PO BID [facility] Last Admin: 10/26/16 09:45 Dose: 250 mg - Labs Labs: 10/26/16 07:40 10/26/16 07:40 PT 12.2 SECONDS (9.7-12.2) 10/24/16 05:00 INR 1.1 10/24/16 05:00 APTT 19 SECONDS (21-34) L D 10/24/16 05:00 Attending/Attestation - Attestation I have personally seen and examined this patient.: Yes I have fully participated in the care of the patient.: Yes I have reviewed all pertinent clinical information, including history, physical exam and plan: Yes Notes (Text): 10/26/16 16:54 Patient was seen and examined at bedside. She is sitting comfortably in the chair and offers no new complaints. Continue IV antibiotics for hospital-acquired pneumonia Discharge planning likely in the next 24 hours Discussed the plan of care with the resident and agree with the assessment and plan documented by the resident.
[2016-10-26 08:02] LABS: ALBUMIN 3.1 g/dL (3.5-5.0)
[2016-10-26 08:05] LABS: AST/SGOT 22 U/L (14-36); BLOOD UREA NITROGEN 4 mg/dL (7-17); GFR AFRICAN-AMERICAN > 60; GFR NON-AFRICAN AMERICAN > 60
[2016-10-26 08:06] LABS: ALT/SGPT 38 U/L (9-52); CALCIUM 8.5 mg/dl (8.6-10.4); MAGNESIUM 1.9 mg/dL (1.6-2.3)
[2016-10-26 08:08] LABS: BASO % 0.5 % (0.0-2.0); EOS # 0.1 K/uL (0.0-0.7); HEMOGLOBIN 9.4 g/dL (11.0-16.0); LYMPH # 2.2 K/uL (1.0-4.3); LYMPH % 31.6 % (20.0-40.0); MEAN CELL VOLUME 87.9 fL (81.0-99.0); MEAN CORPUSCULAR HEMOGLOBIN 30.1 pg (27.0-31.0); MEAN CORPUSCULAR HGB CONC 34.2 g/dL (33.0-37.0); MONO # 0.5 K/uL (0.0-0.8); MONO % 7.1 % (0.0-10.0); NEUT % 58.8 % (50.0-75.0); RBC 3.12 Mil/uL (3.80-5.20); RED CELL DISTRIBUTION WIDTH 12.4 % (11.5-14.5); WHITE BLOOD COUNT 6.8 K/uL (4.8-10.8)
[2016-10-26] MEDS: Saccharomyces Boulardi 250 mg Cap PO SCH ×2 (09:45→17:24)
[2016-10-26] MEDS: guaiFENesin 600 mg ER Tab PO SCH ×2 (09:45→21:37)
[2016-10-26] MEDS: Azithromycin 500 MG in Sodium Chloride 0.9% 250 ML IVPB SCH (09:46)
[2016-10-26] MEDS ORDERED: Pneumococcal 23-Valent Vaccine IM ONE (10:00)
--- NOTE | 2016-10-26 15:32 | CP.PCM.PN ---
Subjective - Date & Time of Evaluation Date of Evaluation: 10/26/16 Time of Evaluation: 07:00 - Subjective Subjective: denieas chest pain or cough much better breathing today denies hemoptysis cardiology on board- will need out pt work up Objective - Vital Signs/Intake and Output Vital Signs (last 24 hours): Temp Pulse Resp BP Pulse Ox 98.1 F 70 20 159/60 H 96 10/26/16 07:00 10/26/16 12:00 10/26/16 07:00 10/26/16 07:00 10/26/16 07:00 Intake and Output: 10/26/16 10/26/16 06:59 18:59 Intake Total 1300 Balance 1300 - Medications Medications: Current Medications Acetaminophen (Tylenol 325mg Tab) 650 mg PO Q6 PRN PRN Reason: Fever >100.4 F Acetaminophen (Tylenol 650mg/20.3ml Solution Ud) 650 mg PO Q6 PRN PRN Reason: Pain, moderate (4-7) Albuterol/Ipratropium (Duoneb 3 Mg/0.5 Mg (3 Ml) Ud) 3 ml INH RQ4 [facility] Last Admin: 10/26/16 12:15 Dose: Not Given Docusate Sodium (Colace) 100 mg PO BID [facility] Last Admin: 10/26/16 09:45 Dose: 100 mg Guaifenesin (Mucinex La) 600 mg PO Q12 [facility] Last Admin: 10/26/16 09:45 Dose: 600 mg Azithromycin 500 mg/ Sodium (Chloride) 250 mls @ 166.667 mls/hr IVPB Q24H [facility] Last Admin: 10/26/16 09:46 Dose: 166.667 mls/hr Piperacillin Sod/Tazobactam Sod (Zosyn 3.375 Gm Iv Premix) 3.375 gm in 50 mls @ 100 mls/hr IVPB Q6 [facility] Last Admin: 10/26/16 11:43 Dose: 100 mls/hr Pneumococcal Polyvalent Vaccine (Pneumovax 23 Vaccine) 0.5 ml IM .ONCE ONE Stop: 10/27/16 10:01 Saccharomyces Boulardii (Florastor) 250 mg PO BID [facility] Last Admin: 10/26/16 09:45 Dose: 250 mg - Labs Labs: 10/26/16 07:40 10/26/16 07:40 PT 12.2 SECONDS (9.7-12.2) 10/24/16 05:00 INR 1.1 10/24/16 05:00 APTT 19 SECONDS (21-34) L D 10/24/16 05:00 - Constitutional Appears: Non-toxic, Chronically Ill - Head Exam Head Exam: NORMOCEPHALIC - Eye Exam Eye Exam: PERRL. absent: Scleral icterus - ENT Exam ENT Exam: Mucous Membranes Dry, Normal External Ear Exam - Respiratory Exam Respiratory Exam: Prolonged Expiratory Phase, Rhonchi - Cardiovascular Exam Cardiovascular Exam: REGULAR RHYTHM, +S1, +S2 - GI/Abdominal Exam GI & Abdominal Exam: Distended, Soft - Rectal Exam Rectal Exam: Deferred - Exam Exam: NORMAL INSPECTION Assessment and Plan (1) NSTEMI (non-ST elevated myocardial infarction) Status: Acute (2) Pneumonia Status: Acute (3) Acute appendicitis Status: Acute
[2016-10-26 16:26] VITALS: O2SAT 95
[2016-10-26] MEDS ORDERED: Albuterol-Ipratrop 3 mg / 0.5 (3 ml) UD INH PRN (16:28)
[2016-10-27] MEDS: Piperacill/Tazo 3.375gm in Dex 3.375 GM/50 ML BAG IVPB SCH ×3 (00:19→12:00)
--- NOTE | 2016-10-27 07:35 | CP.PCM.CON ---
History of Present Illness - History of Present Illness History of Present Illness: admitted with cough and congestion with sob post appendectomy cxr consistent with chf non smoker treated for PNA and CHF with improvement Review of Systems - Respiratory Respiratory: Cough Past Patient History - Past Medical History & Family History Past Medical History?: No - Past Social History Smoking Status: Never Smoked - CARDIAC Hx Cardiac Disorders: No - PULMONARY Hx Respiratory Disorders: No - NEUROLOGICAL Hx Neurological Disorder: No - HEENT Hx HEENT Problems: No - RENAL Hx Chronic Kidney Disease: No - ENDOCRINE/METABOLIC Hx Endocrine Disorders: No Other/Comment: Gestational diabetes - HEMATOLOGICAL/ONCOLOGICAL Hx Blood Disorders: No - INTEGUMENTARY Hx Dermatological Problems: No - MUSCULOSKELETAL/RHEUMATOLOGICAL Hx Musculoskeletal Disorders: No Hx Falls: No - GASTROINTESTINAL Hx Gastrointestinal Disorders: No - GENITOURINARY/GYNECOLOGICAL Hx Genitourinary Disorders: No - PSYCHIATRIC Hx Substance Use: No - SURGICAL HISTORY Hx Surgeries: No - ANESTHESIA Hx Anesthesia: No Meds Allergies/Adverse Reactions: Allergies Allergy/AdvReac Type Severity Reaction Status Date / Time No Known Allergies Allergy Verified 10/24/16 04:34 - Medications Medications: Current Medications Acetaminophen (Tylenol 325mg Tab) 650 mg PO Q6 PRN PRN Reason: Fever >100.4 F Acetaminophen (Tylenol 650mg/20.3ml Solution Ud) 650 mg PO Q6 PRN PRN Reason: Pain, moderate (4-7) Albuterol/Ipratropium (Duoneb 3 Mg/0.5 Mg (3 Ml) Ud) 3 ml INH Q4H PRN PRN Reason: Shortness of Breath Docusate Sodium (Colace) 100 mg PO BID [facility] Last Admin: 10/26/16 17:24 Dose: 100 mg Guaifenesin (Mucinex La) 600 mg PO Q12 [facility] Last Admin: 10/26/16 21:37 Dose: 600 mg Azithromycin 500 mg/ Sodium (Chloride) 250 mls @ 166.667 mls/hr IVPB Q24H [facility] Last Admin: 10/26/16 09:46 Dose: 166.667 mls/hr Piperacillin Sod/Tazobactam Sod (Zosyn 3.375 Gm Iv Premix) 3.375 gm in 50 mls @ 100 mls/hr IVPB Q6 [facility] Last Admin: 10/27/16 05:10 Dose: 100 mls/hr Pneumococcal Polyvalent Vaccine (Pneumovax 23 Vaccine) 0.5 ml IM .ONCE ONE Stop: 10/27/16 10:01 Saccharomyces Boulardii (Florastor) 250 mg PO BID [facility] Last Admin: 10/26/16 17:24 Dose: 250 mg Physical Exam - Constitutional Appears: No Acute Distress - Head Exam Head Exam: ATRAUMATIC, NORMOCEPHALIC - Eye Exam Eye Exam: Normal appearance - ENT Exam ENT Exam: Mucous Membranes Moist - Respiratory Exam Respiratory Exam: Decreased Breath Sounds, Clear to Auscultation Bilateral - Cardiovascular Exam Cardiovascular Exam: +S1, +S2 - GI/Abdominal Exam GI & Abdominal Exam: Normal Bowel Sounds - Rectal Exam Rectal Exam: Deferred - Neurological Exam Neurological exam: Alert, Oriented x3 - Psychiatric Exam Psychiatric exam: Normal Affect, Normal Mood - Skin Skin Exam: Intact Results - Vital Signs Recent Vital Signs: Last Vital Signs Temp 98.2 F 10/26/16 23:40 Pulse 55 L 10/26/16 23:40 Resp 20 10/26/16 23:40 BP 144/59 L 10/26/16 23:40 Pulse Ox 95 10/26/16 23:40 - Labs Result Diagrams: 10/26/16 07:40 10/26/16 07:40 Labs: Laboratory Results - last 24 hr 10/26/16 10/26/16 10/26/16 07:40 07:40 07:40 WBC 6.8 RBC 3.12 L Hgb 9.4 L Hct 27.4 L MCV 87.9 MCH 30.1 MCHC 34.2 RDW 12.4 Plt Count 283 MPV 8.0 Neut % (Auto) 58.8 Lymph % (Auto) 31.6 [place] % (Auto) 7.1 Eos % (Auto) 2.0 Baso % (Auto) 0.5 Neut # 4.0 Lymph # 2.2 [place] # 0.5 Eos # 0.1 Baso # 0.0 Sodium 140 Potassium 3.8 Chloride 103 Carbon Dioxide 23 Anion Gap 18 BUN 4 L Creatinine 0.5 L Est GFR ( Amer) > 60 Est GFR (Non-Af Amer) > 60 Random Glucose 90 Calcium 8.5 L Phosphorus 4.9 H Magnesium 1.9 Total Bilirubin 1.0 AST 22 ALT 38 Alkaline Phosphatase 92 Total Protein 6.3 Albumin 3.1 L Globulin 3.2 Albumin/Globulin Ratio 1.0 Free T4 1.62 TSH 3rd Generation 4.10 Assessment & Plan (1) Pneumonia Status: Acute Comment: resolving with abx. respiratory status stable. suggest PFT as outpt when stable (2) CHF (congestive heart failure) Status: Acute Comment: due to nstemi improved (3) NSTEMI (non-ST elevated myocardial infarction) Status: Acute Comment: as per cardio
[2016-10-27 07:52] LABS: ALBUMIN 3.5 g/dL (3.5-5.0)
[2016-10-27 07:55] LABS: ALT/SGPT 58 U/L (9-52); AST/SGOT 35 U/L (14-36); BLOOD UREA NITROGEN 8 mg/dL (7-17); GFR AFRICAN-AMERICAN > 60; GFR NON-AFRICAN AMERICAN > 60
[2016-10-27 07:56] LABS: CALCIUM 8.9 mg/dl (8.6-10.4); MAGNESIUM 1.8 mg/dL (1.6-2.3)
[2016-10-27 08:04] LABS: BASO % 0.3 % (0.0-2.0); EOS # 0.2 K/uL (0.0-0.7); EOS % 2.9 % (0.0-4.0); HEMOGLOBIN 10.5 g/dL (11.0-16.0); LYMPH # 2.4 K/uL (1.0-4.3); LYMPH % 28.8 % (20.0-40.0); MEAN CELL VOLUME 87.1 fL (81.0-99.0); MEAN CORPUSCULAR HGB CONC 34.5 g/dL (33.0-37.0); MEAN PLATELET VOLUME 7.9 fL (7.2-11.7); MONO # 0.5 K/uL (0.0-0.8); MONO % 6.2 % (0.0-10.0); NEUT # 5.1 K/uL (1.8-7.0); NEUT % 61.8 % (50.0-75.0); RBC 3.51 Mil/uL (3.80-5.20); RED CELL DISTRIBUTION WIDTH 12.5 % (11.5-14.5); WHITE BLOOD COUNT 8.3 K/uL (4.8-10.8)
[2016-10-27] MEDS ORDERED: Pneumococcal 23-Valent Vaccine IM ONE (10:00)
[2016-10-27] MEDS: guaiFENesin 600 mg ER Tab PO SCH (10:14)
[2016-10-27] MEDS: Saccharomyces Boulardi 250 mg Cap PO SCH (10:14)
[2016-10-27] MEDS: Azithromycin 500 MG in Sodium Chloride 0.9% 250 ML IVPB SCH (10:15)
--- NOTE | 2016-10-27 11:37 | CP.PCM.PN ---
Subjective - Date & Time of Evaluation Date of Evaluation: 10/27/16 Time of Evaluation: 08:00 - Subjective Subjective: improving less sob Objective - Vital Signs/Intake and Output Vital Signs (last 24 hours): Temp Pulse Resp BP Pulse Ox 98 F 68 20 134/81 95 10/27/16 07:56 10/27/16 08:10 10/27/16 07:56 10/27/16 07:56 10/27/16 07:56 Intake and Output: 10/27/16 10/27/16 06:59 18:59 Intake Total 400 Balance 400 - Medications Medications: Current Medications Acetaminophen (Tylenol 325mg Tab) 650 mg PO Q6 PRN PRN Reason: Fever >100.4 F Acetaminophen (Tylenol 650mg/20.3ml Solution Ud) 650 mg PO Q6 PRN PRN Reason: Pain, moderate (4-7) Albuterol/Ipratropium (Duoneb 3 Mg/0.5 Mg (3 Ml) Ud) 3 ml INH Q4H PRN PRN Reason: Shortness of Breath Docusate Sodium (Colace) 100 mg PO BID [facility] Last Admin: 10/27/16 10:14 Dose: 100 mg Guaifenesin (Mucinex La) 600 mg PO Q12 [facility] Last Admin: 10/27/16 10:14 Dose: 600 mg Azithromycin 500 mg/ Sodium (Chloride) 250 mls @ 166.667 mls/hr IVPB Q24H [facility] Last Admin: 10/27/16 10:15 Dose: 166.667 mls/hr Piperacillin Sod/Tazobactam Sod (Zosyn 3.375 Gm Iv Premix) 3.375 gm in 50 mls @ 100 mls/hr IVPB Q6 [facility] Last Admin: 10/27/16 05:10 Dose: 100 mls/hr Saccharomyces Boulardii (Florastor) 250 mg PO BID [facility] Last Admin: 10/27/16 10:14 Dose: 250 mg - Labs Labs: 10/27/16 07:27 10/27/16 07:27 PT 12.2 SECONDS (9.7-12.2) 10/24/16 05:00 INR 1.1 10/24/16 05:00 APTT 19 SECONDS (21-34) L D 10/24/16 05:00 Assessment and Plan (1) NSTEMI (non-ST elevated myocardial infarction) Status: Acute (2) Pneumonia Status: Acute (3) Acute appendicitis Status: Acute
[2016-10-27 15:36] VITALS: BP 135/71; PULSE 66; TEMP 98.1
--- NOTE | 2016-10-27 16:39 | CP.PCM.DIS ---
<Vitaliy Gr - Last Filed: 10/27/16 22:44> Provider - Provider Date of Admission: 10/24/16 08:43 Attending physician: Marily Sheffield DO Primary care physician: Mil Low Consults: Surgery: Arago ID: Irasema Cardio: Alan Pulm: Linden Time Spent in preparation of Discharge (in minutes): 45 Diagnosis - Discharge Diagnosis (1) Hospital-acquired pneumonia Status: Acute Comment: see hospital course Hospital Course - Lab Results Lab Results: Micro Results 10/24/16 10:13 Urine Urine Culture - Final No Growth (<1,000 CFU/ML) Most Recent Lab Values WBC 8.3 K/uL (4.8-10.8) 10/27/16 07:27 RBC 3.51 Mil/uL (3.80-5.20) L 10/27/16 07:27 Hgb 10.5 g/dL (11.0-16.0) L 10/27/16 07:27 Hct 30.6 % (34.0-47.0) L 10/27/16 07: MCV 87.1 fL (81.0-99.0) 10/27/16 07:27 MCH 30.0 pg (27.0-31.0) 10/27/16 07:27 MCHC 34.5 g/dL (33.0-37.0) 10/27/16 07: RDW 12.5 % (11.5-14.5) 10/27/16 07:27 Plt Count 367 K/uL (130-400) 10/27/16 07: MPV 7.9 fL (7.2-11.7) 10/27/16 07:27 Neut % (Auto) 61.8 % (50.0-75.0) 10/27/16 07: Lymph % (Auto) 28.8 % (20.0-40.0) 10/27/16 07:27 [place] % (Auto) 6.2 % (0.0-10.0) 10/27/16 07:27 Eos % (Auto) 2.9 % (0.0-4.0) 10/27/16 07: Baso % (Auto) 0.3 % (0.0-2.0) 10/27/16 07:27 Neut # 5.1 K/uL (1.8-7.0) 10/27/16 07:27 Lymph # 2.4 K/uL (1.0-4.3) 10/27/16 07:27 [place] # 0.5 K/uL (0.0-0.8) 10/27/16 07:27 Eos # 0.2 K/uL (0.0-0.7) 10/27/16 07:27 Baso # 0.0 K/uL (0.0-0.2) 10/27/16 07:27 Neutrophils % (Manual) 77 % (50-75) H 10/24/16 05:00 Band Neutrophils % 5 % (0-2) H 10/24/16 05:00 Lymphocytes % (Manual) 14 % (20-40) L 10/24/16 05:00 Monocytes % (Manual) 2 % (0-10) 10/24/16 05:00 Eosinophils % (Manual) 2 % (0-4) 10/24/16 05:00 Platelet Estimate Normal (NORMAL) 10/24/16 05:00 PT 12.2 SECONDS (9.7-12.2) 10/24/16 05:00 INR 1.1 10/24/16 05:00 APTT 19 SECONDS (21-34) L D 10/24/16 05:00 Puncture Site Rt brac 10/24/16 05:26 pCO2 38 mm/Hg (35-45) 10/24/16 05:26 pO2 102 mm/Hg (80-100) H 10/24/16 05:26 HCO3 24.7 mmol/L (21-28) 10/24/16 05:26 ABG pH 7.41 (7.35-7.45) 10/24/16 05:26 ABG Total CO2 25.3 mmol/L (22-28) 10/24/16 05:26 ABG O2 Saturation 99.0 % (95-98) H 10/24/16 05:26 ABG Base Excess -0.3 mmol/L (-2.0-3.0) 10/24/16 05:26 Abiel Test Pos 10/24/16 05:26 ABG Potassium 2.8 mmol/L (3.6-5.2) L 10/24/16 05:26 Sodium 137.0 mmol/l (132-148) 10/24/16 05:26 Chloride 109.0 mmol/L (98-107) H 10/24/16 05:26 Glucose 110 mg/dl (65-105) H 10/24/16 05:26 Lactate 0.7 mmol/L (0.7-2.1) 10/24/16 05:26 Liter Flow 15.0 10/24/16 05:26 Crit Value Called To Md estevan hernandez 10/24/16 05:26 Crit Value Called By R alert verifying machine operator 10/24/16 05:26 Crit Value Read Back Y 10/24/16 05:26 Blood Gas Notified Time 540 10/24/16 05:26 Sodium 140 mmol/L (132-148) 10/27/16 07:27 Potassium 3.8 mmol/L (3.6-5.2) 10/27/16 07:27 Chloride 101 mmol/L (98-107) 10/27/16 07:27 Carbon Dioxide 25 mmol/L (22-30) 10/27/16 07:27 Anion Gap 17 (10-20) 10/27/16 07:27 BUN 8 mg/dL (7-17) 10/27/16 07:27 Creatinine 0.5 MG/DL (0.7-1.2) L 10/27/16 07:27 Est GFR ( Amer) > 60 10/27/16 07:27 Est GFR (Non-Af Amer) > 60 10/27/16 07:27 Random Glucose 102 mg/dL (65-105) 10/27/16 07:27 Hemoglobin A1c 5.3 % (4.2-6.5) 10/24/16 11:37 Calcium 8.9 mg/dl (8.6-10.4) 10/27/16 07:27 Phosphorus 4.8 mg/dL (2.5-4.5) H 10/27/16 07:27 Magnesium 1.8 mg/dL (1.6-2.3) 10/27/16 07:27 Total Bilirubin 0.9 mg/dL (0.2-1.3) 10/27/16 07:27 AST 35 U/L (14-36) 10/27/16 07:27 ALT 58 U/L (9-52) H D 10/27/16 07:27 Alkaline Phosphatase 113 U/L (38-126) 10/27/16 07:27 Total Creatine Kinase 61 U/L (30-135) 10/24/16 17:08 CK-MB (Mass) 0.55 ng/mL (0.0-3.38) 10/24/16 17:08 Troponin I 0.2620 ng/mL (0.00-0.120) H* 10/24/16 05:00 Troponin I, Quant 0.0270 ng/mL (0.00-0.120) 10/24/16 17:08 Total Protein 6.9 g/dL (6.3-8.3) 10/27/16 07:27 Albumin 3.5 g/dL (3.5-5.0) 10/27/16 07:27 Globulin 3.4 gm/dL (2.2-3.9) 10/27/16 07: Albumin/Globulin Ratio 1.0 (1.0-2.1) 10/27/16 07:27 Triglycerides 146 mg/dL (0-149) 10/24/16 17:08 Cholesterol 114 mg/dL (0-199) 10/24/16 17:08 LDL Cholesterol Direct 57 mg/dL (0-129) 10/24/16 17:08 HDL Cholesterol 33 mg/dL (30-70) 10/24/16 17:08 Procalcitonin 2.19 NG/ML (0.19-0.49) H 10/24/16 11:36 Free T4 1.62 ng/dL (0.78-2.19) 10/26/16 07:40 TSH 3rd Generation 4.10 mIU/L (0.46-4.68) 10/26/16 07:40 Arterial Blood Potassium 2.8 mmol/L (3.6-5.2) L 10/24/16 05:26 Urine Color Straw (YELLOW) 10/25/16 21:07 Urine Clarity Clear (Clear) 10/25/16 21:07 Urine pH 7.0 (5.0-8.0) 10/25/16 21:07 Ur Specific [place] 1.004 (1.003-1.030) 10/25/16 21:07 Urine Protein Negative mg/dL (NEGATIVE) 10/25/16 21:07 Urine Glucose (UA) Normal mg/dL (Normal) 10/25/16 21:07 Urine Ketones Negative mg/dL (NEGATIVE) 10/25/16 21:07 Urine Blood Negative (NEGATIVE) 10/25/16 21:07 Urine Nitrate Negative (NEGATIVE) 10/25/16 21:07 Urine Bilirubin Negative (NEGATIVE) 10/25/16 21:07 Urine Urobilinogen Normal mg/dL (0.2-1.0) 10/25/16 21:07 Ur Leukocyte Esterase Neg Bin/uL (Negative) 10/25/16 21:07 Urine WBC (Auto) 16 /hpf (0-5) H 10/24/16 10:27 Urine RBC (Auto) 5 /hpf (0-3) H 10/24/16 10:27 Ur Squamous Epith Cells < 1 /hpf (0-5) 10/25/16 21:07 Urine Bacteria Rare (<OCC) 10/24/16 10:27 Urine HCG, Qual Negative (NEGATIVE) 10/24/16 10:27 - Hospital Course Hospital Course: On admission: HPI: Patient is a 31 year old female with PMHs of gestational diabetes and s/p appendectomy 2 days ago at [facility] who presents for SOB and cough. Patient reports she was discharged from the hospital on Thursday of this week following appendectomy and was sent home with prescription for Augmentin and Roxicet. Patient has not been using incentive spirometer post- surgery because it was forgotten at the hospital. She also reports she has not getting up and walking around a lot since the surgery. Patient reports she began to develop cough yesterday evening that was productive, with initially yellow, then red-tinged pleghm. This was associated with subjective fever, chills, and when these did symptoms did not improve with motrin she decided to come to the hospital. She denies abdominal pain (except small amount of pain around surgical site), nausea, vomiting, or diarrhea. She rates the abdominal pain as 2/10 after taking the Roxicet. She reports no BM since surgery though she admits passing flatus. She denies sick contacts and denies travel. She further denies chest pain, palpitations, diaphoresis, headache, or extremity swelling. Hospital Course: Pt admitted on 10/24/16 for respiratory distress, after recent surgery. Pt febrile associated with cough with sputum, meaning criteria for sepsis. Lactate 0.7 on admission. Chest X-ray showing mild bibasilar atelectasis and or developing lower lobe infiltrates. Chest CT showed no pulmonary embolus. Extensive bibasilar atelectasis and pleural effusions with mild pulmonary venous congestion suggested. EKG showed sinus tachycardia, right axis deviation , abnormal ECG. Pt desatting into 80s at rest so started on vapotherm with non- rebreather mask. Pt denied moving bowels since surgery so abdominal X-ray ordered to r/o obstruction. ICU eval approved for telemtry monitoring. Dr. Guru Tariq, reptile farmer, started patient on Cefepime. Patient was also seen by Dr. Deshaun Malloy who deemed the patient was stable from a surgical standpoint and no surgical intervention was recommended at this time. Patient was seen by Dr. Heladio Villalpando who suggested CT angio of chest, telemetry monitoring and continue antiobiotics. On 10/25/2016 patient was seen by Dr. Sofia Phillips who noted the patient was to continue with current medical therapy and noted no cardiac ischemia. Over course pt;s respiratory status improved, and she remained afebrile for 36 hours post-discharge. She received Cefepime and azithromycin for 4 days inhouse, and was sent out with prescription for Levaquin for 7 days. Pt discharged on 10/27/16. - Date & Time of H&P Date of H&P: 10/24/16 Time of H&P: 08:45 Discharge Exam - Head Exam Head Exam: ATRAUMATIC, NORMOCEPHALIC - Eye Exam Eye Exam: EOMI Pupil Exam: NORMAL ACCOMODATION, PERRL - ENT Exam ENT Exam: Mucous Membranes Moist - Respiratory Exam Respiratory Exam: Clear to PA & Lateral, NORMAL BREATHING PATTERN. absent: Accessory Muscle Use, Rales, Rhonchi - Cardiovascular Exam Cardiovascular Exam: REGULAR RHYTHM, +S1, +S2 - GI/Abdominal Exam GI & Abdominal Exam: Normal Bowel Sounds, Soft. absent: Tenderness - Extremities Exam Extremities exam: normal capillary refill, pedal pulses present - Neurological Exam Neurological exam: Alert, Oriented x3 - Psychiatric Exam Psychiatric exam: Normal Affect, Normal Mood - Skin Skin Exam: Dry, Normal Color, Warm Discharge Plan - Discharge Medications Prescriptions: Levofloxacin [Levaquin] 750 mg PO DAILY #7 tablet - Follow Up Plan Condition: GOOD Disposition: HOME/ ROUTINE Instructions: Levofloxacin (By mouth), Heart Failure (DC), Heart Failure (GEN) , Pacemaker (DC), Pacemaker (GEN), Viral Pneumonia (DC), Pulmonary Edema (DC), Pulmonary Edema (GEN), Appendicitis (DC), Ascites (DC), Ascites (GEN), Pulmonary Function Tests (GEN) Additional Instructions: Pt stable for discharge per Dr. Sheffield. Pt was on the antibiotic Augmentin, and the pain medication Roxicet at time of admission. She should NO LONGER take these medications. She has been prescribed a new antibiotic, Levaquin. It's usage is detailed below The patient should follow up with her PMD, within one week's time as follow up to this admission. Additionally the certified nurse, Dr. Cheatham, has recommended outpatient pulmonary function test. A prescription was provided for this test. If symptoms return pt is to immediately return to the emergency department. Instructions given to the pt in Algerian using the translation system, who verbalized understanding. Medications: Levaquin 750mg by mouth daily for seven days Prescribed examination: Pulmonary Function Test (PFT) Referrals: Kevin Cheatham MD [Staff Provider] - 1 Week <Marily Sheffield V - Last Filed: 10/27/16 23:39> Provider - Provider Date of Admission: 10/24/16 08:43 Attending physician: Marily Sheffield, Hospital Course - Lab Results Lab Results: Micro Results 10/24/16 10:13 Urine Urine Culture - Final No Growth (<1,000 CFU/ML) Most Recent Lab Values WBC 8.3 K/uL (4.8-10.8) 10/27/16 07:27 RBC 3.51 Mil/uL (3.80-5.20) L 10/27/16 07:27 Hgb 10.5 g/dL (11.0-16.0) L 10/27/16 07:27 Hct 30.6 % (34.0-47.0) L 10/27/16 07:27 MCV 87.1 fL (81.0-99.0) 10/27/16 07:27 MCH 30.0 pg (27.0-31.0) 10/27/16 07:27 MCHC 34.5 g/dL (33.0-37.0) 10/27/16 07: RDW 12.5 % (11.5-14.5) 10/27/16 07: Plt Count 367 K/uL (130-400) 10/27/16 07: MPV 7.9 fL (7.2-11.7) 10/27/16 07: Neut % (Auto) 61.8 % (50.0-75.0) 10/27/16 07: Lymph % (Auto) 28.8 % (20.0-40.0) 10/27/16 07: [place] % (Auto) 6.2 % (0.0-10.0) 10/27/16 07: Eos % (Auto) 2.9 % (0.0-4.0) 10/27/16 07: Baso % (Auto) 0.3 % (0.0-2.0) 10/27/16 07: Neut # 5.1 K/uL (1.8-7.0) 10/27/16 07: Lymph # 2.4 K/uL (1.0-4.3) 10/27/16 07: [place] # 0.5 K/uL (0.0-0.8) 10/27/16 07: Eos # 0.2 K/uL (0.0-0.7) 10/27/16 07: Baso # 0.0 K/uL (0.0-0.2) 10/27/16 07: Neutrophils % (Manual) 77 % (50-75) H 10/24/16 05:00 Band Neutrophils % 5 % (0-2) H 10/24/16 05:00 Lymphocytes % (Manual) 14 % (20-40) L 10/24/16 05:00 Monocytes % (Manual) 2 % (0-10) 10/24/16 05:00 Eosinophils % (Manual) 2 % (0-4) 10/24/16 05:00 Platelet Estimate Normal (NORMAL) 10/24/16 05:00 PT 12.2 SECONDS (9.7-12.2) 10/24/16 05:00 INR 1.1 10/24/16 05:00 APTT 19 SECONDS (21-34) L D 10/24/16 05:00 Puncture Site Rt brac 10/24/16 05:26 pCO2 38 mm/Hg (35-45) 10/24/16 05:26 pO2 102 mm/Hg (80-100) H 10/24/16 05:26 HCO3 24.7 mmol/L (21-28) 10/24/16 05:26 ABG pH 7.41 (7.35-7.45) 10/24/16 05:26 ABG Total CO2 25.3 mmol/L (22-28) 10/24/16 05:26 ABG O2 Saturation 99.0 % (95-98) H 10/24/16 05:26 ABG Base Excess -0.3 mmol/L (-2.0-3.0) 10/24/16 05:26 Abiel Test Pos 10/24/16 05:26 ABG Potassium 2.8 mmol/L (3.6-5.2) L 10/24/16 05:26 Sodium 137.0 mmol/l (132-148) 10/24/16 05:26 Chloride 109.0 mmol/L (98-107) H 10/24/16 05:26 Glucose 110 mg/dl (65-105) H 10/24/16 05:26 Lactate 0.7 mmol/L (0.7-2.1) 10/24/16 05:26 Liter Flow 15.0 10/24/16 05:26 Crit Value Called To Md estevan hernandez 10/24/16 05:26 Crit Value Called By R alert verifying machine operator 10/24/16 05:26 Crit Value Read Back Y 10/24/16 05:26 Blood Gas Notified Time 540 10/24/16 05:26 Sodium 140 mmol/L (132-148) 10/27/16 07:27 Potassium 3.8 mmol/L (3.6-5.2) 10/27/16 07:27 Chloride 101 mmol/L (98-107) 10/27/16 07:27 Carbon Dioxide 25 mmol/L (22-30) 10/27/16 07:27 Anion Gap 17 (10-20) 10/27/16 07:27 BUN 8 mg/dL (7-17) 10/27/16 07:27 Creatinine 0.5 MG/DL (0.7-1.2) L 10/27/16 07:27 Est GFR ( Amer) > 60 10/27/16 07:27 Est GFR (Non-Af Amer) > 60 10/27/16 07:27 Random Glucose 102 mg/dL (65-105) 10/27/16 07:27 Hemoglobin A1c 5.3 % (4.2-6.5) 10/24/16 11:37 Calcium 8.9 mg/dl (8.6-10.4) 10/27/16 07:27 Phosphorus 4.8 mg/dL (2.5-4.5) H 10/27/16 07:27 Magnesium 1.8 mg/dL (1.6-2.3) 10/27/16 07:27 Total Bilirubin 0.9 mg/dL (0.2-1.3) 10/27/16 07:27 AST 35 U/L (14-36) 10/27/16 07:27 ALT 58 U/L (9-52) H D 10/27/16 07:27 Alkaline Phosphatase 113 U/L (38-126) 10/27/16 07:27 Total Creatine Kinase 61 U/L (30-135) 10/24/16 17:08 CK-MB (Mass) 0.55 ng/mL (0.0-3.38) 10/24/16 17:08 Troponin I 0.2620 ng/mL (0.00-0.120) H* 10/24/16 05:00 Troponin I, Quant 0.0270 ng/mL (0.00-0.120) 10/24/16 17:08 Total Protein 6.9 g/dL (6.3-8.3) 10/27/16 07:27 Albumin 3.5 g/dL (3.5-5.0) 10/27/16 07:27 Globulin 3.4 gm/dL (2.2-3.9) 10/27/16 07: Albumin/Globulin Ratio 1.0 (1.0-2.1) 10/27/16 07:27 Triglycerides 146 mg/dL (0-149) 10/24/16 17:08 Cholesterol 114 mg/dL (0-199) 10/24/16 17:08 LDL Cholesterol Direct 57 mg/dL (0-129) 10/24/16 17:08 HDL Cholesterol 33 mg/dL (30-70) 10/24/16 17:08 Procalcitonin 2.19 NG/ML (0.19-0.49) H 10/24/16 11:36 Free T4 1.62 ng/dL (0.78-2.19) 10/26/16 07:40 TSH 3rd Generation 4.10 mIU/L (0.46-4.68) 10/26/16 07:40 Arterial Blood Potassium 2.8 mmol/L (3.6-5.2) L 10/24/16 05:26 Urine Color Straw (YELLOW) 10/25/16 21:07 Urine Clarity Clear (Clear) 10/25/16 21:07 Urine pH 7.0 (5.0-8.0) 10/25/16 21:07 Ur Specific [place] 1.004 (1.003-1.030) 10/25/16 21:07 Urine Protein Negative mg/dL (NEGATIVE) 10/25/16 21:07 Urine Glucose (UA) Normal mg/dL (Normal) 10/25/16 21:07 Urine Ketones Negative mg/dL (NEGATIVE) 10/25/16 21:07 Urine Blood Negative (NEGATIVE) 10/25/16 21:07 Urine Nitrate Negative (NEGATIVE) 10/25/16 21:07 Urine Bilirubin Negative (NEGATIVE) 10/25/16 21:07 Urine Urobilinogen Normal mg/dL (0.2-1.0) 10/25/16 21:07 Ur Leukocyte Esterase Neg Bin/uL (Negative) 10/25/16 21:07 Urine WBC (Auto) 16 /hpf (0-5) H 10/24/16 10:27 Urine RBC (Auto) 5 /hpf (0-3) H 10/24/16 10:27 Ur Squamous Epith Cells < 1 /hpf (0-5) 10/25/16 21:07 Urine Bacteria Rare (<OCC) 10/24/16 10:27 Urine HCG, Qual Negative (NEGATIVE) 10/24/16 10:27 Attending/Attestation - Attestation I have personally seen and examined this patient.: Yes I have fully participated in the care of the patient.: Yes I have reviewed all pertinent clinical information, including history, physical exam and plan: Yes Notes (Text): Patient seen, examined and case discussed with day-time resident. Patient seen at bedside. Clinically improved since my time with her on admission. Patient is afebrile, white count improved, and breathing well on room air. Patient completed IV antibiotic therapy for hospital acquired pneumonia; recommended by infectious disease to complete Levaquin 750mg PO daily for 7 days. Note: patient does not have congestive heart failure; discussed and confirmed with cardiology day of discharge; given patient admitted for sepsis secondary pneumonia; no cardiac ischemia; treat medically. Assessment/Plan 1. Sepsis * Criteria: (WBC >12k, HR >100, RR>20) Source: hospital acquired pneumonia * Lactate on ABG 0.7 * NS 1L bolus given; NS @ 100cc/hr * Procalcitonin 2.19 (elevated) * Aebrile for past 3 days * Blood cultures: negative X 3 days X2 * Urine culture: no growth * MRSA: not detected * Florastor 250mg PO BID * Zosyn and Vancomycin given once in ED * Patient completed Cefepime 1gm IV Daily and Azithromycin 500mg IV Daily during hospitalization; per infectious recommendation for 7 day course outpatient on Levaquin 750mg PO daily 2. Hospital Aquired Pneumonia * ICU evaluated patient-->stable for telemetry floor. * ID consult: Dr. Villalpando-->help appreciated * Pulm consult: Dr. Peace-->hospital acquired pneumonia * Pneumonia Severity Index score 50pts (0.6-0.9% mortality) based on Criteria ( + pleural effision, RR> 29, Female subtracts 10 pts) * Aspiration precautions, Incentive spiromety * WBC 15 and Procalcitonin 2.19 (elevated)--> white normalized * CT Chest (10/22/16): No PE. Extensive atelectasis and pleural effusions with mild pulmonary venous congestion. (see full report) * CXR (10/22/16): Poor inspiration with low lung volumes. Crowded bronchovascular markings and mild bibasilar atelectasis and/or developing lower lobe infiltrates. Central pulmonary vasculature slightly increased as well, which could be due to low lung volumes however possibility of mild pulmonary edema/CHF not excluded. (see full report) * Florastor 250mg PO BID * Duonebs Q4H * Mucinex 600mg PO Q12H * Patient completed Cefepime 1gm IV Daily and Azithromycin 500mg IV Daily during hospitalization; per infectious recommendation for 7 day course outpatient on Levaquin 750mg PO daily 3. Elevated troponin * Believed secondary to demand ischemia * Troponin 0.21 +-->normalized following 2 troponins * ASA 325mg PO given once in ED on admission * Cardiology consult: Dr. Phillips-->no cardiac ischemia, treat medically, not congestive heart failure 4. Hypokalemia * normalized 5. Constipation * Abd xray (10/24/16): Unremarkable gas pattern. (see full report) * resolved 6. Fever * Aebrile for past 3 days * Tylenol 650mg PO Q6 hour PRN fever * Florastor 250mg PO BID * Blood cultures: negative X 3 days X2 * Urine culture: no growth * MRSA: not detected * Patient completed Cefepime 1gm IV Daily and Azithromycin 500mg IV Daily during hospitalization; per infectious recommendation for 7 day course outpatient on Levaquin 750mg PO daily 7. Postoperative Appendectomy * Surgery consult Dr. Malloy-->no surgical intervention at this time 8. PPX * DVT proph - lovenox 40mg subq daily * GI proph - not currently indicated * Full code Pt stable for discharge. Pt was on the antibiotic Augmentin, and the pain medication Roxicet at time of admission. She should NO LONGER take these medications. She has been prescribed a new antibiotic, Levaquin. It's usage is detailed below The patient should follow up with her PMD, within one week's time as follow up to this admission. Additionally the certified nurse, Dr. Cheatham, has recommended outpatient pulmonary function test. A prescription was provided for this test. If symptoms return pt is to immediately return to the emergency department. Instructions given to the pt in [place]ian using the translation system, who verbalized understanding. Medications: Levaquin 750mg by mouth daily for 7 days Prescribed examination: Pulmonary Function Test (PFT) This is summay of patient's hospitalization. Please see EMR for further details.
--- NOTE | 2016-10-28 12:37 | CARD ---
APPROVED REPORT EKG Measurement Heart [id number] <Conclusion> Normal sinus rhythm Normal ECG
== END 2016-10-27 16:53 | disposition home or self-care (01) | DRG 584 ==
LOC: C.ER 04:22 → C.9E 08:43 → C.5T 11:55
PROVIDERS: ADMIT Hospitalist; ATTEND Hospitalist
DX: A41.9 Sepsis, unspecified organism (principal); J18.9 Pneumonia, unspecified organism; I21.4 Non-ST elevation (NSTEMI) myocardial infarction; J96.01 Acute respiratory failure with hypoxia; I50.9 Heart failure, unspecified; E87.6 Hypokalemia; J98.11 Atelectasis; Y95 Nosocomial condition; Z98.890 Other specified postprocedural states; K59.00 Constipation, unspecified; Z90.49 Acquired absence of other specified parts of digestive tract; Z86.32 Personal history of gestational diabetes